=== PATIENT | male | born 1975 | race Caucasian/White ===

== ENCOUNTER → 2017-09-27 11:19 | Outpatient (REF) | payer BC, SELFPAY ==
[2017-09-27 21:29] LABS: Cholesterol 167 mg/dL (50-200); Glucose 99 mg/dL (70-100); HDL Cholesterol 42 mg/dL (40-60); LDL CHOLESTEROL 104 mg/dL (<100); Triglyceride 138 mg/dL (30-150)
== END ==
LOC: NCHCN 11:19
PROVIDERS: PCP Nurse Practitioner; Visit Provider Nurse Practitioner
DX: Z00.00 Encounter for general adult medical examination without abnormal findings (principal); Z13.1 Encounter for screening for diabetes mellitus; Z13.220 Encounter for screening for lipoid disorders
CPT/HCPCS: 80061; 82947; 83721

== ENCOUNTER 2017-10-04 18:54 | Emergency (ER) | payer BC, SELFPAY ==
[2017-10-04 19:05] VITALS: BP 133/87; PULSE 77; RESP 20; TEMP 36.8; O2SAT 97
--- NOTE | 2017-10-04 19:31 | ED.GENADUL_ITS ---
Disposition Clinical Impression: Laceration, eyelid Disposition: HOME Condition: Fair Instructions: Facial Laceration (ED) Additional Instructions: Keep wound clean, dry. Monitor for signs of infection including redness, warmth , drainage, fever/chills, increased pain. If these arise please seek care urgently once again. Sutures are absorbable and will follow out on their own. If you develop eye pain, visual changes other new/worsening symptoms please seek care urgently once again. Please follow-up with primary care next week for reevaluation of wound. Referrals: Argentina Rodriguez [Primary Care Provider] - Medical Decision Making - Medical Decision Making Patient presents today with chief complaint of laceration to the left lower lid. Wound is irregular shaped approximately 6 mm in length. Patient also has swelling and ecchymosis centrally in the lower lid. Extraocular was intact. No visual changes. Conjunctiva is not injected. Exam is otherwise benign. I have asked her secretarial staff to find tetanus status. We will anesthetized the area with topical LET. I did have Dr. Page review the wound to discuss closure techniques. He advised on closure techniques and anesthesia technique. LET was not successful at anesthetizing the affected area. Procedure note: Standard sterile technique a TB syringe was used to infiltrate. 1% lidocaine plain. 0.5 cc were used. Wound was then irrigated with sterile saline. Wound was explored to base in a bloodless field. No foreign body or debris was noted. Attention was then turned to closure. #5 simple interrupted 6-0 Monocryl were placed. Wound aligned well with no tension on the wound. Patient tolerated procedure well. I did iglesia the lower lead was unable to appreciate any disruption in the inner surface. Tetanus was updated today. Patient discussed wound care in depth. We discussed the care of his observable stitches. We discussed the signs symptoms of infection when to seek care urgently once again. Advised that he may wash with running water such as when showering but he should not soak or submerge this will increase his risk of infection. Given its location, I have asked that he follow-up with primary care for wound recheck. We discussed new/worsening symptoms and when to seek care urgently once again. All his questions and concerns were addressed and he is in agreement with this plan. History of Present Illness - General Chief complaint: Laceration Stated complaint: FACIAL LACERATION Time Seen by Provider: 10/04/17 19:28 Source: patient, RN notes reviewed Mode of arrival: ambulatory Limitations: no limitations - History of Present Illness Initial comments: Patient is a 42-year-old male presenting today with chief complaint of left eye laceration. Reports a prior to arrival he was playing a pickup game of hockey when he was struck in the left eye with a stick. He denies any eye pain with movement of the eye. Denies any visual changes. Unknown tetanus status. Laceration is along the lateral inferior aspect of the left eye. Also has ecchymosis under her left eye. Has not noted any tearing. Denies other injury the time the incident. Denies any loss conscious. No headache. No pain in the neck or back. Denies any nausea or vomiting. - Related Data Multivitamin [Multivitamins] 1 each PO DAILY 08/14/17 Naproxen Sodium [Aleve] 440 mg PO PRN PRN 08/14/17 Ranitidine [Zantac] 150 mg PO DAILY 08/14/17 Allergies Allergy/AdvReac Type Severity Reaction Status Date / Time No Known Allergies Allergy Unverified 10/04/17 19:06 Review of Systems Constitutional: no symptoms reported Eyes: as per HPI Respiratory: no symptoms reported Skin: as per HPI Neurological: denies: headache Past Medical History - Past Medical History Medical history: GERD Chronic back pain Surgical history: non-contributory, other (Lower back nerve ablation, Oral surgery) - Social History Alcohol use: occasionally Drug use: none General Exam - General Limitations: no limitations General appearance: alert, in no apparent distress - Head Head exam: Present: atraumatic - Eye Eye exam: Present: PERRL, EOMI, periorbital swelling. Absent: normal apperance (Patient has an irregularly shaped 6 mm laceration to the inferior lateral aspect of the left eyelid. Wound is not actively bleeding. Small amount of soft tissue swelling. Wound is in the subcutaneous tissue. Also noted to have linear aspect of ecchymosis along the lower lid associated soft tissue swelling. Extraocular movements are intact. Pupils are equal round and reactive.), scleral icterus, conjunctival injection, nystagmus, periorbital tenderness Pupils: Present: normal accommodation - Neck Neck exam: Present: normal inspection - Respiratory Respiratory exam: Absent: respiratory distress - Neurological Exam Neurological exam: Present: alert, normal gait - Psychiatric Psychiatric exam: Present: normal affect, normal mood - Skin Skin exam: Absent: intact (As above) Course Vital Signs - 24 hr 10/04/17 19:05 Temperature 36.8 C Pulse 77 Respiratory 20 Rate Blood Pressure 133/87 Pulse Oximetry 97
[2017-10-04 21:06] VITALS: BP 133/87; PULSE 77; RESP 20; TEMP 36.8; O2SAT 97
[2017-10-04] MEDS: Lidocaine 1% Multi-Dose 50 ML VIAL IJ (21:06)
== END 2017-10-04 21:04 | disposition home or self-care (01) ==
PROVIDERS: Emergency Provider Student in an Organized Health Care Education/Training Program; PCP Nurse Practitioner
DX: S01.112A Laceration without foreign body of left eyelid and periocular area, initial encounter (principal); W21.210A Struck by ice hockey stick, initial encounter; Y93.22 Activity, ice hockey
CPT/HCPCS: 12011; 90471; 99281

== ENCOUNTER 2019-12-05 01:37 | Outpatient (CLI) | payer BC, SELFPAY ==
[2019-12-05 11:46] LABS: Ferritin 295 ng/mL (26-388)
== END 2019-12-05 01:57 ==
PROVIDERS: PCP Nurse Practitioner; Visit Provider Nurse Practitioner
DX: M25.50 Pain in unspecified joint (principal)
CPT/HCPCS: 36415; 82728

== ENCOUNTER 2020-02-14 04:18 | Outpatient (CLI) | payer BC, SELFPAY ==
[2020-02-14] MEDS: Simethicone/Sod Bicarb/Cit Ac, 4 gram PACKET 1 PACKET PO (10:07)
[2020-02-14] MEDS: Barium Sulfate 700 MG TAB PO (10:08)
[2020-02-14] MEDS: Barium Sulfate 60% W/V 355 ML BTL PO (10:08)
--- NOTE | 2020-02-14 10:11 | DI.RAD_ITS ---
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 CONTRAST MATERIAL: Oral barium Oral water soluble contrast was administered. COMPARISON: No exams were available for comparison FINDINGS: CHEST X-RAY: The heart and pulmonary vasculature are within normal limits. The lungs are clear. No pl eural effusion or pneumothorax is present. The bones are within normal limits fo the patient's age. ESOPHAGRAM: The esophagus is patent with no evidence for erosions, fold thickening, strictures, or ma sses. With regards to the motility, there is a normal primary stripping wave. No tertiary contraction s were noted. There is no hiatal hernia or gastroesophageal reflux. A barium tablet passed into the s tomach. IMPRESSION: Normal esophogram
== END 2020-02-14 04:38 ==
PROVIDERS: PCP Nurse Practitioner; Visit Provider Physician Assistant
DX: F45.8 Other somatoform disorders (principal)
CPT/HCPCS: 74221; J3490

== ENCOUNTER 2021-12-31 12:12 | Day surgery (SDC) | payer BC, SELFPAY ==
--- NOTE | 2021-12-30 20:52 | W.PM.DSUDISC ---
Date of service: 12/31/21 Time of Service: 13:28 Discharge Plan Disposition Patient Disposition: HOME Condition: Good Discharge Details Reason For Visit: colonoscopy Attending Provider: Lazaro Rouse Primary Care Provider: LUCIANO ISAACS Home Meds and New Rx's Prescriptions: Continued sertraline 50 mg tablet 50 mg PO DAILY omeprazole 20 mg capsule,delayed release(DR/EC) 20 mg PO DAILY vitamin B complex [B Complex-Vitamin B12] Tablet 1 tab PO DAILY naproxen sodium [Aleve] 220 MG tablet 440 mg PO PRN PRN multivitamin 1 EACH capsule 1 ea PO DAILY Discontinued bisacodyl [Dulcolax (bisacodyl)] 5 mg tablet,delayed release (DR/EC) 5 mg PO ONCE Qty: 4 0RF Rx Instructions: Take according to provider's instructions for colonoscopy prep. polyethylene glycol 3350 17 gram/dose powder 17 g PO ONCE Qty: 238 0RF Rx Instructions: To be taken as directed by prescriber's office for colonoscopy prep. Discharge Instructions Additional Instructions: 1. If tolerated, consume a soft, low fiber diet for 1-2 days. [address] Do not drive, drink alcohol, operate machinery, make critical decisions, or do activities that require coordination or balance for 24 hours. 3. Because air was put into your colon during the procedure, expelling air from your rectum (passing gas or farting) is normal. 4. You may not have a bowel movement for 1-3 days because of the colonoscopy prep. This is normal. 5. Go directly to the emergency room if you notice any of the following: Develop chills (warm to touch), or if you have a thermometer and your temperature is above 101 Difficulty breathing or difficultly swallowing Persistent vomiting Severe abdominal pain, other than gas cramps Severe chest pain Black, tarry stools Any bleeding ? exceeding one tablespoon 6. Call your physician if the site where your intravenous was started becomes red, swollen, painful, and warm to touch. 7. Your physician has reviewed your pre-procedure medications. Please continue to take those medications as previously ordered. You will be given specific information/education regarding any changes to your medications before leaving. Activity:: Activity as Tolerated Diet:: As Tolerated Discharge Orders Discharge Orders: Discharge Order (Routine); Ordered 12/30/21 Ordered By: Lazaro Rouse DS: Diagnosis Discharge Diagnosis (1) Screening for colon cancer: Status: Acute Asessment and Plan: Normal colonoscopy. He should follow-up with another one in 10 years
--- NOTE | 2021-12-30 20:53 | W.COLOREPORT ---
Date of service: 12/31/21 Time of Service: 13:29 Colonoscopy Report Date of procedure: 12/31/21 Pre-op diagnosis general: Screening colonoscopy for routine health maintenance Post-op diagnosis procedure note: same Procedure: Screening colonoscopy Surgeon: Lazaro Rouse Anesthesia Type: General:No Airway Estimated blood loss (mL): 0 Pathology: none sent Complications: None Disposition: same day Indications: Amaury is 46 years old and is here for his first screening colonoscopy. Prep: Miralax/Dulcolax Procedure Start Time: 13:07 Procedure End Time: 13:21 Retraction Time: 11 Findings: Normal colonoscopy Procedure Description: After the induction of monitored anesthetic care, and with the patient in left lateral decubitus position, I began by performing an external anorectal exam.? Perineum and skin were normal, as was the anal verge.? There was no not evidence of external hemorrhoids.? Next, I performed a digital rectal exam.? I did appreciate any abnormal findings.? Next, I advanced a colonoscope into the rectal vault.? I performed retroflexion.? I did not see signs of pathologic internal hemorrhoids.? Using insufflation, I then advanced the colonoscope beyond the rectal folds and into the sigmoid colon before advancing towards the cecum.? The quality of the prep was excellent.? The scope was noted to be in the cecum by identification of the ileocecal valve and appendiceal orifice.? I then began withdrawing the colonoscope using repeated irrigation as necessary for full evaluation of the colonic mucosa. ?Once the scope was withdrawn to the level of the rectum, great care was taken to examine portions of the rectal folds.? Finally, the scope was withdrawn and the patient was brought to the same-day surgery recovery unit as the anesthetic wore off. ?The findings and instructions were shared with the patient prior to discharge.
--- OUTSIDE RECORDS SUMMARY | 2021-12-31 12:14 | XMS_ITS | Encounter Summary ---
:1975 Author Organization [facility] [place] [address] Care Team Providers Name Role Phone Enrike Melgoza MD Primary Care Provider Encounter Details Date Type Department Care Team Description 10/25/2017 Hospital Encounter [place] [facility] [place], Chronic right [address] Ursula MD joint pain [facility] [id number] [place] [phone] [place] [address] Social History Tobacco Use Types Packs/Day Years Used Date Never Smoker Smokeless Tobacco: Never Used Alcohol Use Standard Drinks/Week Comments Yes 0 (1 standard drink = 0.6 oz pure Not a M-F drinker; just socially. alcohol) Alcohol Habits Answer Date Recorded How often do you have a drink Not asked containing alcohol? How many drinks containing alcohol do Not asked you have on a typical day when you are drinking? How often do you have six or more Not asked drinks on one occasion? Comment: Not a M-F drinker; just socially. 2013 Sex Assigned at Date Recorded Not on file documented as of this encounter Medications at Time of Discharge Medication Sig Dispensed Refills Start Date End Date ibuprofen (ADVIL;MOTRIN) Take 200 mg by 0 200 mg tablet mouth every 6 hours as needed. ranitidine (ZANTAC) 75 mg Take 75 mg by 0 tablet mouth 2 times daily. multivitamin (THERAGRAN) Take 1 tablet by 0 tablet mouth daily. b complex vitamins (VITAMIN Take 1 tablet by 0 B COMPLEX) tablet mouth daily. cyclobenzaprine (FLEXERIL) Take 1 tablet by 30 tablet 0 02/201312/01/2017 5 mg tabletIndications: mouth 3 times Strain of lumbar paraspinal daily as needed muscle, initial encounter for Muscle spasms. documented as of this encounter Plan of Treatment Not on filedocumented as of this encounter Procedures Procedure Name Priority Date/Time Associated Comments Diagnosis HEMOGRAM Routine 10/25/2017 9:04 PM Results f or this EDT procedure are i n the results section. DIFFERENTIAL, Routine 10/25/2017 9:04 PM Results for this AUTOMATED EDT procedure are i n the results section. XR SACROILIAC JOINTS Routine 10/25/2017 11:29 AM Chronic right SI Results for this (GENERIC) EDT joint pain procedure are i n the results section. documented in this encounter Results Differential, Automated (10/25/2017 9:04 PM EDT) P athologist Signature Neutrophils % 50.8 % [facility] Neutr Abs (ANC) 3.08 1.70 - [facility] 6.10 [facility] x10(3)/[facility] LAB[facility]AT[facility] Lymphocytes % 33.3 % [facility] Lymphocytes Abs 2.0 0.9 - 3.2 [facility] x10(3)/[facility] LABORATORY Monocytes % 8.4 % [facility] Monocyte Abs 0.5 0.3 - 0.9 [facility] x10(3)/[facility] LABORATORY Eosinophils % 6.1 % [facility] Eosinophils Abs 0.4 0.0 - 0.4 [facility] x10(3)/[facility] LABORATORY Basophils % 1.2 % [facility] Basophils Abs 0.1 0.0 - 0.1 [facility] x10(3)/[facility] LABORATORY Immature Gran % 0.20 % [facility] Comment: Immature granulocytes(IG's)percentage an d absolute count will include metamyelocytes, myelocytes, and promyelo cytes. Blood smears from CBCs yielding IG's will be scanned manually for concor dance. If this scan disagrees with the automated IG or if promyelocytes are not ed, a manual differential will be performed. Tanya Gran Abs 0.01 0.00 - 0.04 x10(3)/[facility] Specimen Anatomical Collection Method Collection Time Receive d Time (Source) Location / / Volume Laterality Blood specimen Venous Draw / 10/25/2017 9:04 PM 2017 9:04 (specimen) Unknown EDT PM EDT Resulting Agency Comment Spec In Lab Ursula Haile MD HEMATOLOGY ORDERABLES Performing Organization Address City/State/ZIP [place] [address] (ABNORMAL) Hemogram (10/25/2017 9:04 PM EDT) athologist Signature WBC 6.1 4.0 - 9.5 [facility] x10(3)/[facility] RBC 5.01 4.58 - 5.54 [facility] x10(6)/[facility] Hemoglobin 15.6 13.7 - 16.5 [facility] gm/dL [facility] Hematocrit 42.5 40.5 - 48.5 [facility] MCV 84.8 82.9 - 93.1 [facility] LABORATORY Comment: This result has been called to NOT BOGGS D by Ana Cabral on 10 25 2017 at 2113, and has not been read back . MCH 31.1 27.5 - 32.1 pg [facility] MCHC 36.7 (H) 32.0 - 35.7 gm/dL [facility] Platelets 264 145 - 357 x10(3)/[facility] LABORATORY RDWSD 36.9 36.0 - 45.0 [facility] LABORATORY RDWCV 12.1 11.4 - 13.8 % [facility] MPV 10.1 7.6 - 12.9 [facility] LABORATORY nRBC % Auto 0.0 % [facility] nRBC Abs Auto 0.000 0.000 - 0.000 x10(3)/[facility] Specimen Anatomical Collection Method Collection Time Receive d Time (Source) Location / / Volume Laterality Blood specimen Venous Draw / 10/25/2017 9:04 PM 2017 9:04 (specimen) Unknown EDT PM EDT Resulting Agency Comment Spec In Lab Ursula Haile MD HEMATOLOGY ORDERABLES Performing Organization Address City/State/ZIP Code Phon e Number [place] [id number] XR S-I Joints (Generic) (10/25/2017 11:29 AM EDT) Anatomical Region Laterality Modality Pelvis, Hip N/A Digital Radiography Specimen (Source) Anatomical Location Collection Method / Collectio n Time Received Time / Laterality Volume Narrative 10/25/2017 11:50 AM EDT EXAMINATION: XR S-I JOINTS (GENERIC) CLINICAL HISTORY: R SI joint pain. B/L f or comparison. thanks TECHNIQUE: 3 views COMPARISON: None FINDINGS: Bones: No fracture is present. Lumbosacral transitional anatomy with a suspected ileus left L5 transverse process articulating with the left sacra l 8. There are large osteophytes and subchondral sclerosis at this articulati on. This finding may contribute to pain. SI Joints: No ankylosis or erosions. The joint spaces are relatively symmetric. Vacuum phenomenon is present at the righ t SI joint. Hip joints: Symmetric joint spaces. Soft tissue: Normal. Impression 1. ??No sacroiliitis, ankylosis or erosi ons. 2. ??Lumbosacral transitional anatomy wi th degenerative changes at the left transverse process-sacral articulation m ay contribute to pain. Procedure Note Enriqueta Goncalves MD - 10/25/2017Formatt ing of this note might be different from the original. EXAMINATION: XR S-I JOINTS (GENERIC) CLINICAL HISTORY: R SI joint pain. B/L f or comparison. thanks TECHNIQUE: 3 views COMPARISON: None FINDINGS: Bones: No fracture is present. Lumbosacral transitional anatomy with a suspected ileus left L5 transverse process articulating with the left sacra l 8. There are large osteophytes and subchondral sclerosis at this articulati on. This finding may contribute to pain. SI Joints: No ankylosis or erosions. The joint spaces are relatively symmetric. Vacuum phenomenon is present at the righ t SI joint. Hip joints: Symmetric joint spaces. Soft tissue: Normal. Impression 1. No sacroiliitis, ankylosis or erosion s. 2. Lumbosacral transitional anatomy with degenerative changes at the left transverse process-sacral articulation m ay contribute to pain. Ursula Haile MD IMG DX ORDERABLES documented in this encounter Visit Diagnoses Diagnosis Chronic right SI joint pain Disorders of sacrum documented in this encounter Care Teams Hot Press Operator Relationship Specialty Start Date End Date Enrike Melgoza MD PCP - General 01/27/14 11/01/[address] [place] [id number] documented as of this encounter
--- OUTSIDE RECORDS SUMMARY | 2021-12-31 12:14 | XMS_ITS | Encounter Summary ---
:1975 Author Organization [facility] [place] [address] Care Team Providers Name Role Phone Argentina Rodriguez APRN Primary Care Provider Reason for Visit Consultation (Routine) - Specialty Diagnoses / Procedures Referred By Contact Refer red To Contact Rheumatology Diagnoses RAPHAEL positive Facial numbness + RAPHAEL, RIGHT FACIAL NUMBNESS Lili Miles MD [facility] Rheumatology 5c [facility] [address] [address] [place], [place] [address] Referral ID Status Reason Start Date Expiration Date Visits V isits Requested Authorized [id number] Consult, Test 08/29/2017 03/01/2018 [facility] PCP Updated and/or Approved Encounter Details Date Type Department Care Team Description 12/01/2017 Office Visit Rheumatology at [facility] Ursula Haile, Right facial numbness; [facility] Chronic low back pain without sciatica, unspecified back [place] [address] [phone] Rheumatology [place], [place] [address] Social History Tobacco Use Types Packs/Day Years [...] on file documented as of this encounter Last Filed Vital Signs Vital Sign Reading Time Taken Comments Blood Pressure 123/71 12/01/2017 8:43 AM EDT Pulse 67 12/01/2017 8:43 AM EDT Temperature 37.2 ??C (98.9 ??F) 12/01/2017 8:43 AM EDT Respiratory Rate - - Oxygen Saturation 97% 12/01/2017 8:43 AM EDT Inhaled Oxygen Concentration - - Weight 94.8 kg (209 lb) 12/01/2017 8:43 AM EDT Height 177.2 cm (5' 9.75) 12/01/2017 8:43 AM EDT Body Mass Index 30.2 12/01/2017 8:43 AM EDT documented in this encounter Progress Notes Ursula Haile MD - 12/01/2017 9:00 AM EDT Rheumatology follow-up note Initially evaluated in September given positive RAPHAEL, facial numbness. Continues to have numbness in the same R facial distribution. No new or worsening symptoms. Says that he got used to the right facial numbness Had f/u with Neurology. Continue to monitor. Reviewed blood work, imaging. Patient has R SI joint pain. Other than participating in sports hockey, golf, soft ball for 5-6 years, when young, played foot ball. No trauma, injury S/P RFA in in 11/2013 helped with back pain. Thinking about having second one. Back pain always present not debilitating as in 2013. Physical exam: Gen: Patient is awake, alert and oriented x 3, in no distress Skin: warm and dry, no rheumatologic rashes Lymph: no cervical or submandibular adenopathy Mouth: moist mucous membranes, no oral ulcers Eyes: normal sclerae Heart: regular rate, no murmurs, rubs or gallops Lungs: clear to auscultation b/l Spine: R SI joint tenderness. Musculoskeletal: unchanged. No active synovitis. FROM in all joints. LABS: 10/25/17 ALT 54 (0-55) RAPHAEL,NASEEM,dsDNA, ANCA, ESR, CRP, hepatitis serologies, SPEP, CBC,CMP WNL/negative. MPO, PR3 pending. Xray SI joint: 1. ??No sacroiliitis, ankylosis or erosions. 2. ??Lumbosacral transitional anatomy with degenerative changes at the left transverse process-sacral articulation may contribute to pain. Assessment/Plan: Amaury is 42 yo M referred by Neurology for evaluation of right facialnumbness in the setting of positive RAPHAEL, 1:160 SP. Per Neurology, numbness in Right V2 distribution and felt to be post viral nerve injury. No other neurological deficits. H/O dental procedures (last root canal about a year ago. ?? Low back pain, mechanical in nature. S/P RFA in 12/2013 at Lumbosacral arthritis noted on imaging. F/U Chiropractor every month and it helps. No evidence of psoriasis, inflammatory bowel disease, eye, problems. No evidence of inflammatory arthritis. ROS otherwise negative for connective tissue disease. No evidence of sacroiliitis. Differential, inflammatory vs vasculitis vs post viral. No preceeding acute illness though. Repeat Serologies, inflammatory markers negative/WNL. RAPHAEL, NAESEM, dsDNA, C3, C4, ESR, CRP, CBC, CMP, ANCA, hepatitis B,C serologies, SPEP Mild abnormal LFT's ? Steatohepatitis. BMI 31. Repeat normal. Advised on RUQ US for evaluation of fatty infiltration of liver. No clear cause identified for right-sided facial numbness. Reportedly per follow-up with neurology, continue to monitor and reassess with new or worsening symptoms. Again informed about the presenting features of connective tissue disease such as SLE, associated neurological involvement. RTC as needed. documented in this encounter Plan of Treatment Not on filedocumented as of this encounter Visit Diagnoses Diagnosis Right facial numbness Disturbance of skin sensation Chronic low back pain without sciatica, unspecified back pain laterality documented in this encounter Care Teams Hospice Volunteer Coordinator Relationship Specialty Start Date End Date Argentina Rodriguez APRN PCP - General Family Medicine 11/02/17 Olegario [facility] [place] [address] documented as of this encounter
--- OUTSIDE RECORDS SUMMARY | 2021-12-31 12:15 | XMS_ITS | Encounter Summary ---
:1975 Author Organization [facility] [place] [address] Care Team Providers Name Role Phone Enrike Melgoza MD Primary Care Provider Reason for Referral Surgical (Routine) - Closed Specialty Diagnoses / Procedures Referred By Contact Refer red To Contact Orthopaedic Surgery / Diagnoses Chronic right sacroiliac joint pain [facility] [address] [place] GENERAL INTERNAL [phone] [place] [address] Referral ID Status Reason Start Date Expiration Date Visits V isits Requested Authorized [id number] Closed Consult, 08/22/2013 02/18/2014 1 1 Test & Treat Encounter Details Date Type Department Care Team Description 08/22/2013 Orders Only Internal Medicine at [facility], Chronic right [address] sacroiliac joint pain [address] [facility] (Primary Dx) [place] [address] GENERAL INTERNAL [phone] [address] [place], [place] [address] (Wo rk) Social History Tobacco Use Types Packs/Day Years [...] on file documented as of this encounter Progress Notes Desiree Funes - 08/22/2013 3:07 PM EDT I have just checked on this referral and the Spine center has this in process. documented in this encounter Plan of Treatment Scheduled Referrals Name Type Priority Associated Diagnoses Order S chedule Referral to Spine Outpatient Referral Routine Chronic right Or dered: Center sacroiliac joint 08/22/2013 pain documented as of this encounter Visit Diagnoses Diagnosis Chronic right sacroiliac joint pain - Pr imary Disorders of sacrum documented in this encounter Care Teams Senior Patrol Agent Relationship Specialty Start Date End Date Enrike Melgoza MD PCP - General 03/05/12 12/23/[address] [place] [id number] documented as of this encounter
--- OUTSIDE RECORDS SUMMARY | 2021-12-31 12:15 | XMS_ITS | Encounter Summary ---
:1975 Author Organization [facility] [place] [address] Care Team Providers Name Role Phone Enrike Melgoza MD Primary Care Provider Reason for Referral Physical Therapy (Routine) - Closed Specialty Diagnoses / Procedures Referred By Contact Refer red To Contact Physical Therapy Diagnoses Strain of lumbar paraspinal muscle, initial encounter Lonnie Rodriguez PA [facility] Pt Rehab [facility] [place] [address] [place] [address] Referral ID Status Reason Start Date Expiration Date Visits V isits Requested Authorized [id number] Closed Evaluate and 06/27/2013 12/24/2013 1 1 Treat Reason for Visit Reason Comments Back Pain right side back pain x sever al years, getting worse with exercise; concerned fatty lump; chirop ractor helped some; OTC meds not helping Encounter Details Date Type Department Care Team Description 06/27/2013 Office Visit Internal Medicine at Lon[facility] Rodriguez [facility] [place] paraspinal muscle, [address] [facility] initial encounter [place], [place] (Primary Dx) [phone] [facility] [phone] PRIMARY CARE [place], [place] [address] Social History Tobacco Use Types Packs/Day Years Used Date Never Smoker Smokeless Tobacco: Never Used Alcohol Use Standard Drinks/Week Comments Yes 5 (1 standard drink = 0.6 oz pure alcoho l) Sex Assigned at Date Recorded Not on file documented as of this encounter Last Filed Vital Signs Vital Sign Reading Time Taken Comments Blood Pressure 127/92 06/27/2013 9:33 AM EDT left arm Pulse 79 06/27/2013 9:33 AM EDT Temperature 37 ??C (98.6 ??F) 06/27/2013 9:33 AM EDT Respiratory Rate 12 06/27/2013 9:33 AM EDT Oxygen Saturation 98% 06/27/2013 9:33 AM EDT Inhaled Oxygen Concentration - - Weight 92.4 kg (203 lb 12.8 oz) 06/27/2013 9:33 AM EDT Height 175.3 cm (5' 9) 06/27/2013 9:33 AM EDT Body Mass Index 30.1 06/27/2013 9:33 AM EDT documented in this encounter Progress Notes Lonnie Rodriguez PA - 06/27/2013 9:31 AM EDT Subjective: Patient ID: Amaury Armendariz is a 38 y.o. male. HPI Amaury Armendariz presents for evaluation of back pain. He has a hx of back pain for a few years whichworsened last fall when playing hockey. It is in the R lower back. He describes it as a twisting sensation. He was seen by a chiropractor with mild benefit. He has noticed a cyst in the region. It is worse with physical activities. Some radiation to the hip. No numbness or weakness in legs. He will take aleve or motrin intermittently. He has tried ice/heat with variable results. Review of Systems Constitutional: Negative for fever and unexpected weight change. Gastrointestinal: Negative for abdominal pain. Genitourinary: No incontinence Objective: Physical Exam Vitals reviewed. Constitutional: He appears well-developed and well-nourished. No distress. Abdominal: Soft. Bowel sounds are normal. He exhibits no distension and no mass. There is no tenderness. Musculoskeletal: Lumbar back: He exhibits normal range of motion, no tenderness and no bony tenderness. Neg leg raise Assessment and Plan: Amaury was seen today for back pain. Diagnoses and associated orders for this visit: Strain of lumbar paraspinal muscle, initial encounter - Referral to Physical Therapy - cyclobenzaprine (FLEXERIL) 5 mg tablet; Take 1 tablet by mouth 3 times daily as needed for Muscle spasms. It sounds like he has a muscle bundle that reacts to his activity. He will be referred for PT and can use flexeril prn. He can also use a heat pad. documented in this encounter Plan of Treatment Not on filedocumented as of this encounter Procedures Procedure Name Priority Date/Time Associated Diagnosis Comme nts AMB REFERRAL TO PHYSICAL Routine 07/10/2013 Strain of lumbar paraspinal THERAPY muscle, initial encounter documented in this encounter Results Referral to Physical Therapy (07/10/2013) Enrike Melgoza MD [facility] THERAPY REFERRALS documented in this encounter Visit Diagnoses Diagnosis Strain of lumbar paraspinal muscle, init ial encounter - Primary documented in this encounter Care Teams Business Development Coordinator Relationship Specialty Start Date End Date Enrike Melgoza MD PCP - General 03/05/12 12/23/[address] [place] [id number] documented as of this encounter
--- OUTSIDE RECORDS SUMMARY | 2021-12-31 12:15 | XMS_ITS | Encounter Summary ---
:1975 Author Organization [facility] [place] [address] Care Team Providers Name Role Phone Enrike Melgoza MD Primary Care Provider Reason for Visit Reason Comments Back Pain Encounter Details Date Type Department Care Team Description 09/04/2013 Office Visit [facility] at Gal[facility]ino Lawson , PT [facility] [place] [address] Mechanical low back [place] Qiana Moran, YOAV [facility] [place] [address] pain-right sided [facility] MD [facility] [address] (Primary Dx) [place] [address] Social History Tobacco Use Types Packs/Day Years [...] documented as of this encounter Progress Notes Galdino Lawson, PT - 09/04/2013 2:54 PM EDT [facility] PHYSICAL THERAPY INITIAL VISIT Onset: Aggravated September 2012, related to no known injury. Pain: Located in the low back, right buttock, intensity 5/10 at worst. Associated symptoms: Denies sensory loss or weakness in LEs. Previous episodes: 25 year history, no spine surgeries, no known fractures. Treatments this episode: See referral note. Imaging: X-ray done at chiropractor, reportedly showing no fracture or malalignment. Medical history: See problem list. Usual activities are restricted due to this problem. Limiting yardwork. Still able to golf and bike as desired. Sleep is not disturbed. 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 Current exercise routine: Home routine from past PT x 3 days per week, session takes about 30 minutes total, reports that rotation strategies knees left and some flexion strategies can aggravate. Bikes3 miles x 2 days per week, denies aggravation of symptoms during or as a result. Plays golf, walks course, x 2 days per week. Worse with: Sitting, bending, standing. Better with: walking. Gait: Subtle bilateral lateral listing. Neural tension screening: Seated straight leg raises negative. LE Strength Right Left Hip flexion 5/5 5/5 Knee extension 5/5 5/5 Dorsiflexion 5/5 5/5 Hallux extension 5/5 5/5 Plantarflexion 4/5 4/5 Observation / palpation (standing): Right iliac crest mildly elevated compared to left, subtle left lateral shift appearance in lumbar spine. Lumbar spine AROM degrees Forward bend standing 80 Backward bend standing 15 (deviates into left rotation) (Right less than Left Side [place]) Repeated movement testing During, After Pre-test pain standing Low back Flexion standing increased, worse Extension standing increased, worse Pre-test pain lying Low back Flexion lying decreased, better Extension lying increased, worse Additional tests (lateral, overpressure, passive): Flexion sitting with no adverse effects. Assessment: Flexion directional preference, symptoms will likely change slowly over time. Will likely require lateral or strength components to compliment. Active participation in self care planning today. Plan: Initial self care trial centered around flexion lying x 10 repetitions and flexion sitting x 10 repetitions, agreed that he will perform one or the other every couple of hours while awake for 6 sessions total each day. Knows to discontinue any movement or activity that causes true worsening or peripher alization of symptoms. Other considerations will include rotation in flexion, flexion in step standing. Recommend PT follow up in 1 week. Treatment Goals (with 2 additional PT sessions over 3 weeks): Pain intensity 2/10 at worst. Allow for sitting 30 minutes without pain aggravation. Increase flexion and extension range of motion 10 degrees each. Independent self care. documented in this encounter Plan of Treatment Not on filedocumented as of this encounter Visit Diagnoses Diagnosis Mechanical low back pain-right sided - P rimary Lumbago documented in this encounter Care Teams Machine Hose Cutter Relationship Specialty Start Date End Date Enrike Melgoza MD PCP - General 03/05/12 12/23/[address] [place] [id number] documented as of this encounter
--- OUTSIDE RECORDS SUMMARY | 2021-12-31 12:15 | XMS_ITS | Encounter Summary ---
:1975 Author Organization [facility] [place] [address] Care Team Providers Name Role Phone Enrike Melgoza MD Primary Care Provider Reason for Visit Consultation (Routine) - Specialty Diagnoses / Procedures Referred By Contact Refer red To Contact Rheumatology Diagnoses RAPHAEL positive Facial numbness + RAPHAEL, RIGHT FACIAL NUMBNESS Lili Miles MD [facility] 5c [facility] [address] [id number] [place], [place] [address] Referral ID Status Reason Start Date Expiration Date Visits V isits Requested Authorized [id number] Consult, Test 08/29/2017 03/01/2018 [facility] PCP Updated and/or Approved Encounter Details Date Type Department Care Team Description 10/25/2017 Office Visit [place] [facility] [place]ula Haile, Raised antibody titer; [facility] Rt facial numbness; [facility] right SI joint pain; [place] [address] Abnormal laboratory test [phone] Rheumatology Dep [place], [place] [address] Social History Tobacco Use Types [...] Sign Reading Time Taken Comments Blood Pressure 135/73 10/25/2017 9:46 AM EDT Pulse 66 10/25/2017 9:46 AM EDT Temperature 37.2 ??C (98.9 ??F) 10/25/2017 9:46 AM EDT Respiratory Rate - - Oxygen Saturation 97% 10/25/2017 9:46 AM EDT Inhaled Oxygen Concentration - - Weight 97.5 kg (215 lb) 10/25/2017 9:46 AM EDT Height 177.2 cm (5' 9.75) 10/25/2017 9:46 AM EDT Body Mass Index 31.07 10/25/2017 9:46 AM EDT documented in this encounter Progress Notes Ursula Haile MD - 10/25/2017 10:00 AM EDT Outpatient Rheumatology Consult CC: Asked by Lili Miles MD, Neurology, [place], [place] to evaluate this patient with positive RAPHAEL. Facial numbness. No paper work up filled. Reviewed notes. HPI: Amaury is 42 yo M with h/o mechanical low back pain. 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 Since July (2 months), sort of sudden onset, numbness on R side of face (nose, cheek, chin). Noticeswhen shaving. No change int he nature of pain. Has seen dentist 6 months ago for hygiene. Had root canal done about a year ago. Not worse not better. Not taking any specific medications for relief. No acute illness, travel, injury preceding the onset of symptoms.. Known h/o sun burn over years. Has photosensitivity. No malar rash, mouth sores, hair loss, dry eyes, dry mouth, serositis. R sided LBP for at least 10 years, worse over the last 5 years. Worse with ice skating, hockey. Now plays goley and is tolerable. Used to play soft ball for 15 years, golf for about 8 years, mountain bike. 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 Seen by chiropractor with some relief. Did PT with some relief. Had RFA lumbosacral spine on January 15 2014. No significant stiffness in the morning. Rest, ice helps with the pain. Sometimes playing goley helps. PMH: Mechanical ow back pain Esophageal reflux related to food intake controlled with Zantac Right-sided low back pain Mild scoliosis Social Hx: Never smoker. Occasional beer. 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 Family Hx: No known family history of autoimmune disease. No known family or personal history of psoriasis, inflammatory bowel disease, eye problems. ROS: Gen: no night sweats, fatigue or fevers Skin: no rashes, no hair loss Mouth: denies dry mouth, no oral ulcers Eyes: no erythema or pain Lymph: no adenopathy Vascular: no Raynaud's, no digital ischemia Heart: no chest pain, palpitations Lungs: no dyspnea, cough, wheezing Abd: no pain, GERD, diarrhea, constipation : no dysuria, no flank pain Musculoskeletal: per HPI Physical Exam: Gen: Patient is awake, alert and oriented x 3, in no distress Skin: warm and dry, no rheumatologic rashes Lymph: no cervical or submandibular adenopathy Thyroid: no nodules or thyromegaly Mouth: moist mucous membranes, no oral ulcers Eyes: normal sclerae Heart: regular rate, no murmurs, rubs or gallops Lungs: clear to auscultation b/l Spine: normal ROM. Mild scoliosis. Joints: No active synovitis. FROM in all joints R SI joint minimal tenderness to palption. Otherwise non tender. Felipe's test 15.5 cm with forward flexion. S/P injury to L eye with hockey stick, corner with 5 stitches, one stitch with minimal redness. Decreased sensation in the R side of face. LABS/Studies: 08/17/17 Tick and lyme panel, vitamin B12, CBC negative/WNL AST/ALT 38/85 (15-37/12-78 U/L) albumin 4.2 vitamin B12 805 TSH 3.62 creatinine 1.6 ESR 7 CRP 0.22 (0-0.3) 08/15/17CT head without contrast negative 08/24/17Brain MRI no acute findings 12/21/13 Xray L spine Impression Mild levoconvex scoliosis of the lumbar spine, otherwise normal lumbar sacral spine films. Impression/Recommendations: Amaury is 42 yo M referred by Neurology for evaluation of right facial numbness in the setting of positive RAPHAEL, 1:160 SP. Per Neurology, numbness in Right V2 distribution and felt to be post viral nerve injury. No other neurological deficits. H/O dental procedures (last root canal about a year ago. Based on history, low back pain, possible mechanical in nature. No evidence of psoriasis, inflammatory bowel disease, eye, problems. No evidence of inflammatory arthritis. ROS otherwise negative for connective tissue disease. Differential, inflammatory vs vasculitis vs post viral Check RAPHAEL, NASEEM, dsDNA ESR, CRP, CBC, CMP Mild abnormal LFT's ? Steatohepatitis. BMI 31 Consider C3, C4, hepatitis B,C serologies, ANCA panel, SPEP as part of vasculitis w/u. Cryo can be done during follow up as appropriate. GGT, RUQ ultrasound based on repeat LFT's RTC in 4 weeks 10/25/17 ALT 54 (0-55) RAPHAEL,NASEEM,dsDNA, ANCA, ESR, CRP, hepatitis serologies, SPEP, CBC,CMP WNL/negative. MPO, PR3 pending. Xray SI joint: 1. No sacroiliitis, ankylosis or erosions. 2. Lumbosacral transitional anatomy with degenerative changes at the left transverse process-sacral articulation may contribute to pain. documented in this encounter Plan of Treatment Not on filedocumented as of this encounter Procedures Procedure Name Priority Date/Time Associated Comments Diagnosis CRP, ACUTE INFLAMMATION Routine 10/25/2017 11:48 Raised antibo dy Results for this AM EDT titer procedure are in Rt facial numbness the resul ts section. EXTRACTABLE NUCLEAR Routine 10/25/2017 11:48 Raised antibody R esults for this ANTIGEN (NASEEM) AB AM EDT titer procedure are in Rt facial numbness the resul ts section. CYTOPLASMIC NEUTROPHILIC Routine 10/25/2017 11:48 Results for this AB AM EDT procedure are i n the results section. PROTEINASE-3 ANTIBODY Routine 10/25/2017 11:48 Re sults for this AM EDT procedure are i n the results section. PROTEINASE-3 ANTIBODY Routine 10/25/2017 11:48 Re sults for this AM EDT procedure are i n the results section. MYELOPEROXIDASE AB Routine 10/25/2017 11:48 Resul ts for this AM EDT procedure are i n the results section. MYELOPEROXIDASE AB Routine 10/25/2017 11:48 Resul ts for this AM EDT procedure are i n the results section. DNA ANTIBODY Routine 10/25/2017 11:48 Raised antibody Results for this (DOUBLE-STRANDED) AM EDT titer procedure are in Rt facial numbness the resul ts section. HEMOGRAM Routine 10/25/2017 11:48 Results for this AM EDT procedure are i n the results section. DIFFERENTIAL, AUTOMATED Routine 10/25/2017 11:48 Results for this AM EDT procedure are i n the results section. HEPATITIS C ANTIBODY Routine 10/25/2017 11:48 Res ults for this AM EDT procedure are i n the results section. HEPATITIS B CORE Routine 10/25/2017 11:48 Results for this ANTIBODY, TOTAL AM EDT procedure ar e in the results section. HEPATITIS B SURFACE Routine 10/25/2017 11:48 Resu lts for this ANTIBODY AM EDT procedure are i n the results section. HEPATITIS B SURFACE Routine 10/25/2017 11:48 Resu lts for this ANTIGEN AM EDT procedure are i n the results section. SEDIMENTATION RATE Routine 10/25/2017 11:48 Raised antibody Re sults for this AM EDT titer procedure are in Rt facial numbness the resul ts section. C3 COMPLEMENT Routine 10/25/2017 11:48 Results fo r this AM EDT procedure are i n the results section. C4 COMPLEMENT Routine 10/25/2017 11:48 Results fo r this AM EDT procedure are i n the results section. RAPHAEL ANTIBODY SCREEN Routine 10/25/2017 11:48 Raised antibody R esults for this AM EDT titer procedure are i n the results section. PROTEIN ELECTROPHORESIS, Routine 10/25/2017 11:48 Results for this SERUM AM EDT procedure are i n the results section. COMPREHENSIVE METABOLIC Routine 10/25/2017 11:48 Results for this PANEL (NON-FASTING) AM EDT procedur e are in the results section. documented in this encounter Results Differential, Automated (10/25/2017 11:48 AM EDT) Patholo gist Method Time Signature Neutrophils % Mislabeled [facility] Comment: Corrected from 40.5 % [NA] on 0 10/25/17 09:01 by Ana Pedro. Neutr Abs (ANC) Mislabeled 1.70 - 6.10 [facility] Comment: Corrected from 1.46 x10(3)/mcL [LOW] on 10/25/17 09:01 by Ana Pedro. Lymphocytes % Mislabeled [facility] Comment: Corrected from 38.5 % [NA] on 0 10/25/17 09:01 by Ana Pedro. Lymphocytes Abs Mislabeled 0.9 - 3.2 [facility] Comment: Corrected from 1.4 x10(3)/mcL o n 10/25/17 09:01 by Ana Pedro. Monocytes % Mislabeled [facility] Comment: Corrected from 12.7 % [NA] on 0 10/25/17 09:01 by Ana Pedro. Monocyte Abs Mislabeled 0.3 - 0.9 [facility] Comment: Corrected from 0.5 x10(3)/mcL o n 10/25/17 09:01 by Ana Pedro. Eosinophils % Mislabeled [facility] Comment: Corrected from 6.6 % [NA] on 09:01 by Ana Pedro. Eosinophils Abs Mislabeled 0.0 - 0.4 [facility] Comment: Corrected from 0.2 x10(3)/mcL o n 10/25/17 09:01 by Ana Pedro. Basophils % Mislabeled [facility] Comment: Corrected from 1.4 % [NA] on 09:01 by Ana Pedro. Basophils Abs Mislabeled 0.0 - 0.1 [facility] Comment: Corrected from 0.0 x10(3)/mcL o n 10/25/17 09:01 by Ana Pedro. Immature Gran % Mislabeled [facility] Comment: Immature granulocytes(IG's)percentage an d absolute count will include metamyelocytes, myelocytes, and promyelo cytes. Blood smears from CBCs yielding IG's will be scanned manually for concor dance. If this scan disagrees with the automated IG or if promyelocytes are not ed, a manual differential will be performed. Immature granulocytes(IG's)percentage an d absolute count will include metamyelocytes, myelocytes, and promyelo cytes. Blood smears from CBCs yielding IG's will be scanned manually for concor dance. If this scan disagrees with the automated IG or if promyelocytes are not ed, a manual differential will be performed. Corrected from 0.30 % [NA] on 10/25/17 0 9:01 by Ana Pedro. Tanya Gran Abs Mislabeled 0.00 - 0.04 [facility] Comment: Corrected from 0.01 x10(3)/mcL on 10/25/17 09:01 by Ana Pedro. Specimen Anatomical Collection Method Collection Time Receive d Time (Source) Location / / Volume Laterality Blood specimen Venous Draw / 10/25/2017 11:48 10/26/19 18 (specimen) Unknown AM EDT 12:07 PM EDT Resulting Agency Comment Spec In Lab Ursula Haile MD HEMATOLOGY ORDERABLES Performing Organization Address City/State/ZIP Code Phon e Number [place] [phone] Hemogram (10/25/2017 11:48 AM EDT) athologist Signature WBC Mislabeled 4.0 - 9.5 [facility] Comment: Corrected from 3.6 x10(3)/mcL [ LOW] on 10/25/17 09:01 by Ana Pedro. RBC Mislabeled 4.58 - 5.54 [facility] Comment: Corrected from 4.47 x10(6)/mcL [LOW] on 10/25/17 09:01 by Ana Pedro. Hemoglobin Mislabeled 13.7 - 16.5 [facility] Comment: Corrected from 13.7 gm/dL on 09:01 by Ana Pedro. Hematocrit Mislabeled 40.5 - 48.5 [facility] Comment: Corrected from 41.5 % on 09:01 by Ana Pedro. MCV Mislabeled 82.9 - 93.1 [facility] Comment: Corrected from 92.8 fL on 10/25 09:01 by Ana Pedro. MCH Mislabeled QNS [facility] Comment: Corrected from 30.6 pg on 10/25 09:01 by Ana Pedro. MCHC Mislabeled 32.0 - 35.7 [facility] Comment: Corrected from 33.0 gm/dL on 09:01 by Ana Pedro. Platelets Mislabeled 145 - 357 [facility] Comment: Corrected from 187 x10(3)/mcL o n 10/25/17 09:01 by Ana Pedro. RDWSD Mislabeled 36.0 - 45.0 [facility] Comment: Corrected from 41.2 fL on 10/25 09:01 by Ana Pedro. RDWCV Mislabeled 11.4 - 13.8 [facility] Comment: Corrected from 11.9 % on 09:01 by Ana Pedro. MPV Mislabeled 7.6 - 12.9 fL [facility] Comment: Corrected from 10.5 fL on 10/25 09:01 by Ana Pedro. nRBC % Auto 0.0 % [facility] nRBC Abs Auto Mislabeled 0.000 - 0.000 [facility] Comment: Corrected from 0.000 x10(3)/mcL on 10/25/17 09:01 by Ana Pedro. Specimen Anatomical Collection Method Collection Time Receive d Time (Source) Location / / Volume Laterality Blood specimen Venous Draw / 10/25/2017 11:48 10/26/19 (specimen) Unknown AM EDT 12:07 PM EDT Resulting Agency Comment Spec In Lab Ursula Haile MD HEMATOLOGY ORDERABLES Performing Organization Address City/State/[place] [address] Comprehensive metabolic panel (non-fasting) (10/25/2017 11:48 AM EDT) P athologist Signature Glucose Lvl 95 65 - 199 [facility] mg/dL [facility] Comment: Diabetes: >=200 mg/dL plus symp toms BUN 18 10 - 20 mg/dL [facility] Creatinine 1.09 0.80 - 1.50 mg/dL [facility] Sodium 140 135 - 145 mmol/L [facility] Potassium 4.2 3.5 - 5.0 mmol/L [facility] Comment: Please note: ??Patients with WBC >100,00 0 may have falsely elevated Potassium levels. ??For accurate Potassium quantif ication in these patients send serum separator tube (gold top) for subsequent determinations. ??Contact the Clinical Chemistry Laboratory if there are any qu estions. Chloride 103 98 - 107 mmol/L [facility] CO2 Not Perf 22 - 31 [facility] Comment: Add-on request. Sample too old to perform test. Anion Gap Unable to Calculate 5 - 15 mmol/L [facility] Calcium 9.8 8.5 - 10.5 mg/dL [facility] Total Protein 7.4 6.1 - 8.0 gm/dL [facility] Albumin 4.5 3.2 - 5.2 gm/dL [facility] AST 29 0 - 39 unit/L [facility] ALT 54 0 - 55 unit/L [facility] Alk Phos 72 40 - 120 unit/L [facility] Total Bilirubin 0.7 0.2 - 1.3 mg/dL [facility] Estimated GFR 83 >=60 mL/min/1.73 m?? [facility] Comment: The eGFR was calculated using the CKD-EP I equation. As with all creatinine based estimates of kidney function, eGFR values calculated with the CKD-EPI equation are not accurate in patients wi th acute kidney failure, extremes of body mass or the acutely ill. [email or web address] [place] eGFR 96 >=60 mL/min/1.73 m?? [facility] Comment: The eGFR was calculated using the CKD-EP I equation. As with all creatinine based estimates of kidney function, eGFR values calculated with the CKD-EPI equation are not accurate in patients wi th acute kidney failure, extremes of body mass or the acutely ill. [email or web address]/[facility]nkf Specimen Anatomical Collection Method Collection Time Receive d Time (Source) Location / / Volume Laterality Blood specimen Venous Draw / 10/25/2017 11:48 10/26/19 18 (specimen) Unknown AM EDT 12:09 PM EDT Resulting Agency Comment Spec In Lab Ursula Haile MD CHEMISTRY ORDERABLES Performing Organization Address City/[facility]/ZIP Code Phon e Number [address] Hepatitis B Core Antibody, Total (10/25/2017 11:48 AM EDT) Analysis Performed At Patho logist Time Signature Hep B Core Ab Negative Negative [facility] Specimen Anatomical Collection Method Collection Time Receive d Time (Source) Location / / Volume Laterality Blood specimen Venous Draw / 10/25/2017 11:48 10/26/19 18 6:11 (specimen) Unknown AM EDT PM EDT Resulting Agency Comment Spec In Lab Ursula Haile MD CHEMISTRY ORDERABLES Performing Organization Address City/State/ZIP Code Phon e Number [address] C4 Complement (10/25/2017 11:48 AM EDT) P athologist Signature C4 Complement 21 10 - 40 [facility] mg/dL [facility] Specimen Anatomical Collection Method Collection Time Receive d Time (Source) Location / / Volume Laterality Blood specimen Venous Draw / 10/25/2017 11:48 10/26/19 18 6:11 (specimen) Unknown AM EDT PM EDT Resulting Agency Comment Spec In Lab Ursula Haile MD CHEMISTRY ORDERABLES Performing Organization Address City/State/ZIP Code Phon e Number [address] C3 Complement (10/25/2017 11:48 AM EDT) P athologist Signature C3 Complement 144 90 - 180 [facility] mg/dL [facility] Specimen Anatomical Collection Method Collection Time Receive d Time (Source) Location / / Volume Laterality Blood specimen Venous Draw / 10/25/2017 11:48 10/26/19 18 6:11 (specimen) Unknown AM EDT PM EDT Resulting Agency Comment Spec In Lab Ursula Haile MD CHEMISTRY ORDERABLES Performing Organization Address City/State/ZIP Code Phon e Number [address] Hepatitis C Antibody (10/25/2017 11:48 AM EDT) Analysis Performed At Patho logist Time Signature Hepatitis C Ab Negative Negative [facility] Specimen Anatomical Collection Method Collection Time Receive d Time (Source) Location / / Volume Laterality Blood specimen Venous Draw / 10/25/2017 11:48 10/26/19 18 6:11 (specimen) Unknown AM EDT PM EDT Resulting Agency Comment Spec In Lab Ursula Haile MD IMMUNOLOGY ORDERABLES Performing Organization Address City/State/ZIP Code Phon e Number [address] Hepatitis B Surface Antigen (10/25/2017 11:48 AM EDT) Analysis Performed At Patho logist Time Signature HepB Surface Negative Negative [facility] LABORATORY Specimen Anatomical Collection Method Collection Time Receive d Time (Source) Location / / Volume Laterality Blood specimen Venous Draw / 10/25/2017 11:48 10/26/19 18 6:11 (specimen) Unknown AM EDT PM EDT Resulting Agency Comment Spec In Lab Ursula Haile MD CHEMISTRY ORDERABLES Performing Organization Address City/State/ZIP [place] [address] Hepatitis B Surface Antibody (10/25/2017 11:48 AM EDT) P athologist Signature HepB Surface <3.5 IU/L [facility] Ab Quant [facility] Comment: HepB Surface Ab Quant: Unvaccinated: < 8.5 IU/L Vaccinated: > 11.5 IU/L HepB Surface Ab Negative [facility] Comment: Patient is presumed to be not vaccinated or immune to HBV infection. Expected Results: Vaccinated: Positive Unvaccinated: Negative Specimen Anatomical Collection Method Collection Time Receive d Time (Source) Location / / Volume Laterality Blood specimen Venous Draw / 10/25/2017 11:48 10/26/19 18 6:11 (specimen) Unknown AM EDT PM EDT Resulting Agency Comment Spec In Lab Ursula Haile MD IMMUNOLOGY ORDERABLES Performing Organization Address City/[facility]/ZIP [facility] Phon e Number [address] Proteinase-3 Antibody (10/25/2017 11:48 AM EDT) athologist Signature PR3 Ab <2.0 <=20.0 [facility] LABORATORY Specimen Anatomical Collection Method Collection Time Receive d Time (Source) Location / / Volume Laterality Blood specimen Venous Draw / 10/25/2017 11:48 10/26/19 18 3:10 (specimen) Unknown AM EDT PM EDT Resulting Agency Comment Spec In Lab Ursula Haile MD CHEMISTRY ORDERABLES Performing Organization Address City/[facility]/ZIP Code Phon e Number [address] Myeloperoxidase Ab (10/25/2017 11:48 AM EDT) P athologist Signature MPO Ab <2.0 <=20.0 [facility] Specimen Anatomical Collection Method Collection Time Receive d Time (Source) Location / / Volume Laterality Blood specimen Venous Draw / 10/25/2017 11:48 10/26/19 18 3:10 (specimen) Unknown AM EDT PM EDT Resulting Agency Comment Spec In Lab Ursula Haile MD CHEMISTRY ORDERABLES Performing Organization Address City/[facility]/ZIP Code Phon e Number [address] Proteinase-3 Antibody (10/25/2017 11:48 AM EDT) P athologist Signature PR3 Ab <2.0 <=20.0 [facility] Specimen Anatomical Collection Method Collection Time Receive d Time (Source) Location / / Volume Laterality Blood specimen Venous Draw / 10/25/2017 11:48 10/26/19 18 3:10 (specimen) Unknown AM EDT PM EDT Resulting Agency Comment Spec In Lab Ursula Haile MD CHEMISTRY ORDERABLES Performing Organization Address City/State/ZIP Code Phon e Number [address] Myeloperoxidase Ab (10/25/2017 11:48 AM EDT) P athologist Signature MPO Ab <2.0 <=20.0 [facility] Specimen Anatomical Collection Method Collection Time Receive d Time (Source) Location / / Volume Laterality Blood specimen Venous Draw / 10/25/2017 11:48 10/26/19 18 3:10 (specimen) Unknown AM EDT PM EDT Resulting Agency Comment Spec In Lab Ursula Haile MD CHEMISTRY ORDERABLES Performing Organization Address City/State/ZIP Code Phon e Number [address] Cytoplasmic Neutrophilic Ab (10/25/2017 11:48 AM EDT) athologist Signature C-ANCA Negative Negative [facility] Comment: Test Performed by: [facility] - [address] [address] P-ANCA Negative Negative [facility] Comment: Negative for cANCA and pANCA patterns by immunofluorescence. ADDITIONAL INFORMATIO N This test was developed and its performa nce characteristics determined by [facility] in a manner co nsistent with CLIA requirements. This test has not been donny ared or approved by the U.S. Food and Drug Administration. Test Performed by: [facility] [address] [place] [address] Specimen Anatomical Collection Method Collection Time Receive d Time (Source) Location / / Volume Laterality Blood specimen Venous Draw / 10/25/2017 11:48 10/26/19 18 1:52 (specimen) Unknown AM EDT PM EDT Resulting Agency Comment Spec In Lab Ursula Haile MD CHEMISTRY ORDERABLES Performing Organization Address City/[facility]/ZIP [facility] [place] [address] Protein Electrophoresis, serum (10/25/2017 11:48 AM EDT) Patholo gist Method Time Signature Total Prot 7.2 6.1 - 8.0 [place] Elec gm/dL [facility] Albumin Elect 4.86 3.60 - 6.00 [place] gm/dL [facility] Alpha1-Globul 0.14 0.10 - 0.30 [place] in gm/dL [facility] Alpha2-Globul 0.52 0.40 - 0.90 [place] in gm/dL [facility] Beta Globulin 0.70 0.50 - 1.00 [facility] gm/dL [facility] Gamma 0.98 0.50 - 1.30 [facility] Globulin gm/dL [facility] M1 Band None None [place] Detected Detected [facility] Specimen Anatomical Collection Method Collection Time Receive d Time (Source) Location / / Volume Laterality Blood specimen Venous Draw / 10/25/2017 11:48 10/26/19 18 6:11 (specimen) Unknown AM EDT PM EDT Resulting Agency Comment Spec In Lab Ursula Haile MD CHEMISTRY ORDERABLES Performing Organization Address City/[facility]/[place] [address] RAPHAEL (10/25/2017 11:48 AM EDT) P athologist Signature RAPHAEL Neg Neg [facility] LABORATORY Specimen Anatomical Collection Method Collection Time Receive d Time (Source) Location / / Volume Laterality Blood specimen 10/25/2017 11:48 8 3:10 (specimen) AM EDT PM EDT Resulting Agency Comment Spec In Lab Ursula Haile MD IMMUNOLOGY ORDERABLES Performing Organization Address City/[facility]/ZIP [facility] Phon e Number [address] CRP, acute inflammation (10/25/2017 11:48 AM EDT) P athologist Signature CRP 2.4 <=4.9 mg/L [facility] LABORATORY Specimen Anatomical Collection Method Collection Time Receive d Time (Source) Location / / Volume Laterality Blood specimen 10/25/2017 11:48 8 (specimen) AM EDT 12:07 PM EDT Resulting Agency Comment Spec In Lab Ursula Haile MD CHEMISTRY ORDERABLES Performing Organization Address City/[facility] Phon e Number [address] Sedimentation rate (10/25/2017 11:48 AM EDT) P athologist Signature Sed Rate 6 0 - 15 [facility] LABORATORY Specimen Anatomical Collection Method Collection Time Receive d Time (Source) Location / / Volume Laterality Blood specimen 10/25/2017 11:48 8 (specimen) AM EDT 12:07 PM EDT Resulting Agency Comment Spec In Lab Ursula Haile MD HEMATOLOGY ORDERABLES Performing Organization Address City/[facility]/ZIP [facility] [place] [address] DNA Antibody (Double-Stranded) (10/25/2017 11:48 AM EDT) P athologist Signature DNA Ab (DS) Neg Neg [facility] LABORATORY Specimen Anatomical Collection Method Collection Time Receive d Time (Source) Location / / Volume Laterality Blood specimen 10/25/2017 11:48 8 3:10 (specimen) AM EDT PM EDT Resulting Agency Comment Spec In Lab Ursula Haile MD CHEMISTRY ORDERABLES Performing Organization Address City/[facility]/ZIP Code Phon e Number [address] Extractable Nuclear Antigen (NASEEM) Ab (10/25/2017 11:48 AM EDT) [facility] Method Time Signature NASEEM Ab KLARISSA [place] Test ?Result ?Flag ??Unit ??RefValue [facility] Ab to Extractable Nuclear Ag Elizabet Hobbs LABORATORY ??SS-A/Ro Ab, IgG, S ?<0.2 ?U ? <1.0 (Negative) ??SS-B/La Ab, IgG, S ?<0.2 ?U ? <1.0 (Negative) ??Sm Ab, IgG, S ? <0.2 ?U ? <1.0 (Negative) ??TILE INSPECTOR Ab, IgG, S ?0.2 ? U ? <1.0 (Negative) ??Scl 70 Ab, IgG, S ? <0.2 ?U ? <1.0 (Negative) ??Julissa 1 Ab, IgG, S ? <0.2 ?U ? <1.0 (Negative) ?Test Performed by: ?[facility] ?[address] [place] [address] Specimen Anatomical Collection Method Collection Time Receive d Time (Source) Location / / Volume Laterality Blood specimen 10/25/2017 11:48 8 1:52 (specimen) AM EDT PM EDT Resulting Agency Comment Spec In Lab Ursula Haile MD IMMUNOLOGY ORDERABLES Performing Organization Address City/State/[place] [address] XR S-I Joints (Generic) [...] documented in this encounter Visit Diagnoses Diagnosis Raised antibody titer Other and unspecified nonspecific immuno logical findings Rt facial numbness Disturbance of skin sensation Chronic right SI joint pain Disorders of sacrum Abnormal laboratory test Other abnormal clinical finding Chronic right SI joint pain Disorders of sacrum documented in this encounter Care Teams Tank Cooper Relationship Specialty Start Date End Date Enrike Melgoza MD PCP - General 01/27/14 11/01/[address] [place] [id number] documented as of this encounter
--- OUTSIDE RECORDS SUMMARY | 2021-12-31 12:15 | XMS_ITS | Encounter Summary ---
:1975 Author Organization [facility] [place] [address] Care Team Providers Name Role Phone Enrike Melgoza MD Primary Care Provider Encounter Details Date Type Department Care Team Description 12/11/2013 Hospital Encounter XRay at [address] [place] [address] Social History Tobacco Use Types Packs/Day Years [...] filedocumented as of this encounter Visit Diagnoses Not on filedocumented in this encounter Care Teams Tire Mold Tester Relationship Specialty Start Date End Date Enrike Melgoza MD PCP - General 03/05/12 12/23/[address] [place] [id number] documented as of this encounter
--- OUTSIDE RECORDS SUMMARY | 2021-12-31 12:15 | XMS_ITS | Encounter Summary ---
:1975 Author Organization [facility] [place] [address] Care Team Providers Name Role Phone Enrike Melgoza MD Primary Care Provider Encounter Details Date Type Department Care Team Description 12/18/2013 Telephone Pain Management at Lucrecia Serna, [place] [address] Social History Tobacco Use Types Packs/Day [...] on file documented as of this encounter Miscellaneous Notes Telephone Encounter - Lucrecia Moreno, RN - 12/18/2013 11:11 AM EDT Pain Management Center Post-Procedure Phone Note Patient: Amaury Armendariz [id number] Post-procedure phone call from patient to report his response to the right lumbar medial branch block procedure performed on 12/17/2013 in the Pain Management Center by Ben Lemons DO. This is patient's : first medial branch block Patient reports that after the procedure he experienced: _x_ Patient reported post-block numeric pain scale: 0 /10 (average pain since procedure) x__ Post-procedure pain has been reduced by 100%. (> 80% Medicare/MVP/Medicaid) If pain is reduced, it lasted: No less than 4 hours Yes 4 hours or greater Yes 24 hours or greater. Based on the information provided above and after discussion with the patient, the following actionswill be taken: x__ Patient meets criteria for radiofrequency treatment and would like to proceed with a Lumbar Radiofrequency procedure with Ben Lemons DO. _x_ Patient will be contacted by dental secretary in Pain Management Center as described above. _x_ Patient was given general information about the procedure and all their questions were answered to their satisfaction. Patient on anticoagulant medication: No Patient has pacemaker/defibrillator: No Patient has the appropriate phone number and understands that he may contact the Pain Management Center at any time with questions or concerns. Lucrecia Moreno RN documented in this encounter Plan of Treatment Not on filedocumented as of this encounter Visit Diagnoses Not on filedocumented in this encounter Care Teams Restaurant Host/Hostess Relationship Specialty Start Date End Date Enrike Melgoza MD PCP - General 03/05/12 12/23/[address] [place] [id number] documented as of this encounter
--- OUTSIDE RECORDS SUMMARY | 2021-12-31 12:15 | XMS_ITS | Encounter Summary ---
:1975 Author Organization [facility] Address [place] [id number] Care Team Providers Name Role Phone Enrike Melgoza MD Primary Care Provider Reason for Referral Physical Therapy (Routine) - Closed Specialty Diagnoses / Procedures Referred By Contact Refer red To Contact Physical Therapy Diagnoses Mechanical low back pain Qiana Moran [facility] Spine Pt VACCINE SPECIALIST [facility] [place] [address] [place] [address] Referral ID Status Reason Start Date Expiration Date Visits V isits Requested Authorized [id number] Closed Evaluate and 09/04/2013 03/03/2014 3 3 Treat Reason for Visit Reason Comments Back Pain lower back pain Encounter Details Date Type Department Care Team Description 09/04/2013 Office Visit Spine Center at Qiana Morani adryan low back [place] YOAV Garza pain-right sided [facility] (Pr imary Dx) [place], [place] SPINE CENTER [address] [place] [address] [phone] Social History Tobacco Use Types Packs/Day Years [...] documented as of this encounter Progress Notes Dean Qiana E, YOAV - 09/04/2013 8:43 AM EDT CHIEF COMPLAINT: Right sided low back pain. HISTORY OF PRESENT ILLNESS: Amaury Armendariz is a 38 y.o. male seen in the Spine Center today in consultation for Frank Ann MD (PCP). He presents with a chief complaint of right sided low back pain, which has been present for a number of years but became more bothersome to him since Fall 2012. He denies groin pain, and reports his right low back pain only occasionally will extend into his right buttock or hip. He denies any radicular symptoms in his lower extremities. He reports he could, barely move, after playing hockey this winter or after riding in a golf cart this spring. Pain in this area is aggravated by golfing, riding in a golf cart, twisting, playing hockey, extended sitting or standing, and relieved by movement/walking. His pain levels have improved from 5/10 range to 2/10 range since seeing a chiropractor and physical therapist over the last several months, but he reports his pain is still a, nuisance, to him. Treatments to date have included: Chiropractor, PT at [facility], Left heel lift, acupuncture,Biofreeze, Flexeril & ibuprofen, all with some mild pain relief and improved range of motion. REVIEW OF SYSTEMS: negative for any GI (except GERD) or symptoms, fevers, night sweats, chills, weight loss, saddle anesthesia or loss of bowel or bladder control. He denies myelopathic symptoms such as gait disturbance, gait imbalance, or difficulty with fine motor control. He sleeps well. PAST MEDICAL HISTORY: GERD, elevated fasting glucose, & obesity. PAST SURGICAL HISTORY: [place] tooth extraction & eye laser surgery. FAMILY HISTORY: Significant for heart disease. 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 He has missed work a few days over the past year due to his low back pain. He does not smoke and drinks alcohol on the weekends (6 beers over the weekend) or when he plays golf (2-3 beers). MEDICATIONS & ALLERGIES: reviewed with the patient and are in eD-H. PHYSICAL EXAMINATION: Height: 5'9. Weight: 207. BMI: 30.9. This is a healthy appearing overweight male in no acute distress. He ambulates with a steady, fluid gait. He is able to walk on his heels and toes without weakness. He is able to perform tandem heel-toe walk without ataxia. He stands with relatively level shoulders but his right hip and knee slightly higher than the left. His lumbar spine is non-tender to palpation. His right SIJ and sciatic notch ismildly tender to palpation. Trunk flexion is 90 degrees and painfree. Trunk extension is 20 degrees and painful in his right lumbar spine. Straight leg raise and cross straight leg raise are negative bilaterally. Femoral stretch test is negative bilaterally. Strength is 5/5 in all lower extremity muscles groups and bilateral EHLs. Touch sensation is normal and symmetrical in bilateral lower extremities. Deep tendon reflexes are 2/4 at the knees and 2/4 at the ankles bilaterally. There is no clonus. Babinski is with down-going toes bilaterally. Lilly's sign is absent bilaterally. Lhermitte's signis absent. Hip range of motion is full and pain free bilaterally in sitting and prone positions. Jacquelyn's, Gaenselen's & Frank's tests are negative on the right. Hopping on his right foot does not aggravate his right low back pain. IMAGING: No recent spinal imaging. ASSESSMENT: Mechanical low back pain, right sided. PLAN: Non-surgical options including PT, NSAIDs and injections were reviewed with the patient. 1) Referral to Spine Center PT for mechanical diagnosis and treatment/to assess for a directional preference. 2) He has a copy of the book, Treat Your Own Back, given to him by PT at [facility]. 3) I encouraged him to take ibuprofen up to 800mg Q8 hours or Aleve 2 tabs BID as needed with food. Follow-Up: If his symptoms worsen or fail to improve with PT. The next step would be to consider a right lumbar medial branch block and we would need to order a lumbar x-ray for this type of injection.His SIJ testing was negative on physical exam. All questions were answered and the patient is in agreement with the above treatment plan. This was a counseling dominated visit with approximately 25 minutes of this 40 minute encounter spent in face to face counseling, medical decision making, and review of treatment options. Thank you for the opportunity to participate in the care of this patient. Qiana Moran MS, VACCINE SPECIALIST, DIGITAL TRAFFIC COORDINATOR-C [facility] documented in this encounter Plan of Treatment Scheduled Referrals Name Type Priority Associated Diagnoses Order S chedule Referral to Outpatient Referral Routine Mechanical low back O rdered: Physical Therapy pain-right sided 014 documented as of this encounter Visit Diagnoses Diagnosis Mechanical low back pain-right sided - P rimary Lumbago documented in this encounter Care Teams Poultry Boner Relationship Specialty Start Date End Date Enrike Melgoza MD PCP - General 03/05/12 12/23/[address] [place] [phone] documented as of this encounter
--- OUTSIDE RECORDS SUMMARY | 2021-12-31 12:15 | XMS_ITS | Encounter Summary ---
:1975 Author Organization [facility] [place] [address] Care Team Providers Name Role Phone Enrike Melgoza MD Primary Care Provider Encounter Details Date Type Department Care Team Description 08/28/2013 Follow-Up Physical Therapy at Mick Vance, PT [facility] [address] PHYSICAL MEDICINE & [place] [address] Low back pain (Primary Dx); [facility] Enrike Melgoza MD [address] [place] [phone] Chronic right SI joint pain [address] [place] [address] Social History Tobacco Use Types Packs/Day Years [...] as of this encounter Progress Notes Galdino Vance, PT - 08/28/2013 3:47 PM EDT Images from the original note were not included. Physical Therapy Progress Note - On-Hold/Discharge Summary Total treatment time: 40 minutes Total timed code treatment: 35 minutes Date of Exam/First Treatment: 07/04/2013 Date of onset: 2012 Referring Provider: Lonnie KOENIG Authorizing Provider: Frank Ann MD Follow up visit for patient with: 1. Low back pain 2. Chronic right SI joint pain S: Pt reports he is feeling ok overall, but he still has some pain into the R SI Joint. He has a f/uin the spine center next week for possible SI injections or other recommendations. Most days he is ok, and he reports the stretches have helped his overall sx's. He feels that if he continues with his regular routine of stretching and heat/ice as neccessary he can manage his sx's on his own. O: Therex: Strength/Endurance/ROM (20928) 25 min ?? Treadmill 13 min 3.0 - 3.5 mph ?? Review of HEP including adding new stretches ?? Quadruped sit back ?? Iliocostalis ?? Piriformis ?? Discussed next steps to f/u in Spine Center. Yuan Thornton, Treat Your Own Back Book given and discussed Ch 5 for exercises to integrate at home. A: Mr. Armendariz has seen reduction in his pain sx's of the lower back but still has some SI related sx's that occur with some of his recreational activities (usually not during the activity but in the recovery). We discussed that he has a well rounded exercise routine that targets his specific area of pain sx's and that he should continue integrating these into his regular exercise routine. At this time we'll place him on hold so he can come back if he chooses to restart with clinic program. Our primary focus of sessions has been developing his home program and self-treatment methods using stretching, heat/cold modalities. We have not integrated many clinic activities because his sx's are low-levelwhen he is here. It is in Mr. Armendariz's best interest to continue his daily stretching routine for best outcomes. P: On Hold 4 weeks. He is following up in Spine Center next week for next steps. Previous Clinic Exercises/Activities: ?? Manual Therapy 10 min ?? STM to lumbar paraspinals - Prone with pillow under abdomen ?? Quadruped Stretches 2x30 ?? lumbar paraspinals ?? Iliocostalis ?? Stretches Standing 2x20 ea. NEW (Golf Stretches) ?? Cane Side bending (iliocostalis) ?? Cane Rotation (multifidi/paraspinals) ?? Cane Extension ?? Stretches 2x30 Passive ?? Hamstring ?? Piriformis ?? Quadruped Bird Dog (Medora UE/LE ext) 5x15 E-Stim - 4 leads to lumbar paraspinals, 80-150 IFC with cold pack 12 min (see image for electrode placement) Current goals: GOALS: Therapy Short Term Goals (3 weeks) Patient will: 08/07/13 MET 1. Be indep with home exercise program. 08/07/13 ONGOING 2. report ability to sit for 1 hour without increased difficulty in his lower back as reported on the Mod. Oswestry. 08/07/13 MET 3. report ability to stand for 1 hour without increased difficulty in his lower back as reported on the Mod. Oswestry. Therapy Director Of Retention Goals (6 weeks) Patient will: 08/07/13 ONGOING 1. Demonstrate an improved Modified Oswestry score by reduction of 9 points for statistically significant improvement in functional ability. 08/07/13 ONGOING 2. report ability to sit for as long as he likes without difficulty in his lower back as reported on the Mod. Oswestry. 08/07/13 ONGOING 3. report ability to stand for as long as he needs without increased difficulty in his lower back as reported on the Mod. Oswestry. 08/07/13 ONGOING 4. report ability to return to 9 holes of golf without report of increased pain in his lower back during recovery from activity documented in this encounter Plan of Treatment Not on filedocumented as of this encounter Visit Diagnoses Diagnosis Low back pain - Primary Lumbago Chronic right SI joint pain Disorders of sacrum documented in this encounter Care Teams Community Engagement Coordinator Relationship Specialty Start Date End Date Enrike Melgoza MD PCP - General 03/05/12 12/23/[address] [place] [id number] documented as of this encounter
--- OUTSIDE RECORDS SUMMARY | 2021-12-31 12:15 | XMS_ITS | Encounter Summary ---
:1975 Author Organization [facility] [place] [address] Care Team Providers Name Role Phone Enrike Melgoza MD Primary Care Provider Encounter Details Date Type Department Care Team Description 07/17/2013 Follow-Up Physical Therapy at Alina Valero L ow back pain (Primary [address] JANITORIAL MANAGER Dx) [address] [place] [address] PHYSICAL MEDICINE & [place] [address] Social History Tobacco Use Types Packs/Day Years Used Date Never Smoker Smokeless Tobacco: Never Used Alcohol Use Standard Drinks/Week Comments Yes 5 (1 standard drink = 0.6 oz pure alcoho l) Sex Assigned at Date Recorded Not on file documented as of this encounter Progress Notes Alian Valero JANITORIAL MANAGER - 07/17/2013 4:02 PM EDT Physical Therapy Progress Note Total treatment time: 45 minutes Total timed code treatment: 45 minutes Follow up visit for patient with 1. Low back pain Date of Exam/First Treatment: 07/04/2013 Date of onset: 2012 Referring Provider: Lonnie KOENIG Authorizing Provider: Enrike Melgoza MD S: Patient reports he was very sore after golf 2 weekends ago, not bad after last Monday when he walked the course. O: Therex and Manual: ?? LTR ?? h/s stretch ?? transverse abdominal training: LTR, low level bug, LTR with LE on ball and wt ball in hands,flex/ext with UE/LE ?? bird dog ?? TTP hip flexor stretch ?? standing hip flexor stretch cuing for core stab ?? STM (B) thoracolumbar paraspinals 10 min A: Patient will benefit from greater core (transverse abdominals) engagement during activities. P: Continue physical therapy per PT POC and goals. GOALS: Therapy Short Term Goals (3 weeks) Patient will: 1. Be indep with home exercise program. 2. report ability to sit for 1 hour without increased difficulty in his lower back as reported on the Mod. Oswestry. 3. report ability to stand for 1 hour without increased difficulty in his lower back as reported on the Mod. Oswestry. Therapy Skilled Nursing Goals (6 weeks) Patient will: 1. Demonstrate an improved Modified Oswestry score by reduction of 9 points for statistically significant improvement in functional ability. 2. report ability to sit for as long as he likes without difficulty in his lower back as reported onthe Mod. Oswestry. 3. report ability to stand for as long as he needs without increased difficulty in his lower back asreported on the Mod. Oswestry. 4. report ability to return to 9 holes of golf without report of increased pain in his lower back during recovery from activity documented in this encounter Plan of Treatment Not on filedocumented as of this encounter Visit Diagnoses Diagnosis Low back pain - Primary Lumbago documented in this encounter Care Teams Clinical Veterinarian Relationship Specialty Start Date End Date Enrike Melgoza MD PCP - General 03/05/12 12/23/[address] [place] [address] documented as of this encounter
--- OUTSIDE RECORDS SUMMARY | 2021-12-31 12:15 | XMS_ITS | Encounter Summary ---
:1975 Author Organization [facility] [place] [address] Care Team Providers Name Role Phone Enrike Melgoza MD Primary Care Provider Encounter Details Date Type Department Care Team Description 12/13/2013 Telephone Pain Management [place] [address] Social History Tobacco Use Types Packs/Day [...] this encounter Miscellaneous Notes Telephone Encounter - Amalia Thomas LPN - 12/16/2013 8:33 AM EDT Amaury Armendariz :1975 Contact made with patient: I spoke to Mr. Armendariz at 8:33 AM regarding his upcoming Right lumbar medial branch block scheduled on 12/17/13 (date) scheduled at 10:25 (time) with Dr. Ben Lemons DO. Medication and Allergy reconciliation: 1. Changes were made in the telephone encounter per patient; marked as reviewed, and closed. 2. Patient confirmed no IVP dye allergy. 3. Have you had any steroid injections anywhere in your body within the last two weeks? no Arrival time: The patient was instructed to arrive at 9:55 (30 minutes prior to procedure start time - 60 minutes prior for RF patients with a pacemaker) on 12/17/13 (date of procedure). Civil Draftsman: The patient was reminded that they need to have a regional truck driver accompany them to his procedure who will remain onsite. Antibiotics/Skin assessment/Illness symptoms/Pain level assessment : 1. The patient confirmed that he is not taking antibiotics at this time. 2. The patient confirmed that he does not have any rashes, blisters, or skin breakdown on their body. 3. The patient confirmed that he does not have any active infections. 4. The patient confirmed that he does not have any symptoms of illness: fever, chills, cold, flu, nausea, vomiting. 5. The patient confirmed that he isstill experiencing significant pain. (Significant pain is definedas interfering with performing ADL.) Pain and Anti-anxiety Medications: 1. Nerve Block Procedure Patients: Patient was instructed NOT to take their pain medications on the day of the procedure and anti-anxiety medications are part of their daily medication regiment; they can and should continue taking that medication. 2. All Other Procedure Patients: The patient was instructed that if they take daily pain or anti-anxiety medications, they can and should continue taking on the day of the procedure. Does patient have history of any diagnosed bleeding disorders: No Anticoagulants: No Implant: Patient has pacemaker/defibrillator: No Prior to checking in at [employer], please be sure to empty your bladder. Patient confirmed understanding that if they do not follow the above their instructions, their procedure is likely to be cancelled. Amalia Thomas LPN Telephone Encounter - Mayela Monk RN - 12/13/2013 8:40 AM EDT Amaury Armendariz :1975 Message left: I left a message on answering machine Mr. Armendariz at 8:40 AM regarding his upcoming Right lumbar medial branch block with Dr. Ben Ithaca, DO. Message included the followin. Patient instructed to arrive at 9:55 am (30 minutes prior to procedure start time) on 12/17/2013 with their regional truck driver. 2. Following instructions left in the message: - Call the Pain Clinic Nurse at for: ~Procedure instructions. - Do not take any pain medications on the day of your procedure. Mayela Monk RN documented in this encounter Plan of Treatment Not on filedocumented as of this encounter Visit Diagnoses Not on filedocumented in this encounter Care Teams Setter Cold Rolling Machine Relationship Specialty Start Date End Date Enrike Melgoza MD PCP - General 03/05/12 12/23/[address] [place] [id number] documented as of this encounter
--- OUTSIDE RECORDS SUMMARY | 2021-12-31 12:15 | XMS_ITS | Encounter Summary ---
:1975 Author Organization [facility] [place] [address] Care Team Providers Name Role Phone Enrike Melgoza MD Primary Care Provider Reason for Visit Reason Comments Back Pain Encounter Details Date Type Department Care Team Description 09/11/2013 Office Visit Functional Mormon Galdino Lawson, Mechanical low back Program at [facility] ad PT pain-right sided [address] [facility] (Primary Dx) [place] [address] [place] [address] Social History Tobacco Use Types Packs/Day Years [...] encounter Progress Notes Galdino Lawson, PT - 09/11/2013 3:39 PM EDT [facility] PHYSICAL THERAPY FOLLOW-UP Subjective: Utilized self care exercises as planned, each session provides some symptomatic relief. Pain affects primarily right side of low back, none in buttock since last visit. Prolonged standing is most problematic. Objective testing: Lumbar spine AROM degrees Forward bend standing 85 Backward bend standing 15 Other: Assessment and Planning Exercise testing: Pre-test mild low back pain standing. Flexion in right step standing increased, not worse. Rotation in flexion knees left increased, worse. Rotation in flexion knees right decreased, better. Right side glide standing increased, worse. Home exercise program: Reviewed exercise objectives and safety principles. The self care routine nowconsists of: Rotation in flexion knees right x 10 repetitions followed by shifting hips off center to the left before an additional 10 repetitions, 3 sessions per day. Flexion sitting x 10 repetitions, 3 sessions per day. Some benefit thus far with flexion strategies. Rotation in flexion knees right with progressive shifts of pelvis left improved standing posture and standing extension range of motion today as a result.Requires further progression to achieve treatment goals. Knows to call the [facility] with any questions or concerns. Plan: Recommend PT follow up in 1 week. Consider combining existing strategies as needed. Length of visit: A total of 30 minutes was spent to test and develop appropriate self care exercise strategies. documented in this encounter Plan of Treatment Not on filedocumented as of this encounter Visit Diagnoses Diagnosis Mechanical low back pain-right sided - P rimary Lumbago documented in this encounter Care Teams Automatic Edger Relationship Specialty Start Date End Date Enrike Melgoza MD PCP - General 03/05/12 12/23/[address] [place] [id number] documented as of this encounter
--- OUTSIDE RECORDS SUMMARY | 2021-12-31 12:15 | XMS_ITS | Encounter Summary ---
:1975 Author Organization [facility] Address [place] [id number] Care Team Providers Name Role Phone Enrike Melgoza MD Primary Care Provider Encounter Details Date Type Department Care Team Description 08/14/2017 Telephone Neurology [place] [facility] Amaury Oleary MD [facility] [place] [phone] NEUROLOGY DEPT [phone] [place] [id number] (Wo rk) Social History Tobacco Use Types [...] this encounter Miscellaneous Notes Telephone Encounter - Amaury Oleary MD - 08/14/2017 10:39 PM EDT Call from OSH Patient comes in with facial numbness. Has 4 days of numbness in, V2 distribution, R nose, and infraorbital, and upper lip on R. No headaches, no infectious symptoms,no trauma. CTH non contrast was negative. No rashes or tick bite. RECOMMENDATIONS: -Neuropathy screen: B12, SPEP, HIV, Hep B/C -consider lyme -consider MRI Brain w/ taye as outpatient -consider EMG -consider LP and CSF studies -he will likely follow-up with neurology there but if that did not work out we will see him here Amaury Oleary MD PGY-3 Neurology Resident documented in this encounter Plan of Treatment Not on filedocumented as of this encounter Visit Diagnoses Not on filedocumented in this encounter Care Teams Legal Entity Controller Relationship Specialty Start Date End Date Enrike Melgoza MD PCP - General 01/27/14 11/01/[address] [place] [id number] documented as of this encounter
--- OUTSIDE RECORDS SUMMARY | 2021-12-31 12:15 | XMS_ITS | Encounter Summary ---
:1975 Author Organization [facility] [place] [address] Care Team Providers Name Role Phone Enrike Melgoza MD Primary Care Provider Encounter Details Date Type Department Care Team Description 08/07/2013 Follow-Up Physical Therapy at Mick Vance, PT Low back pain (Primary [address] [facility] Dx) [address] [place] [address] PHYSICAL MEDICINE & [phone] [place] [address] Social History Tobacco Use Types Packs/Day Years Used Date Never Smoker Smokeless Tobacco: Never Used Alcohol Use Standard Drinks/Week Comments Yes 5 (1 standard drink = 0.6 oz pure alcoho l) Sex Assigned at Date Recorded Not on file documented as of this encounter Progress Notes Galdino Vance, PT - 08/07/2013 3:45 PM EDT Images from the original note were not included. Physical Therapy Progress Note - Re-Evaluation Total treatment time: 40 minutes Total timed code treatment: 35 minutes Date of Exam/First Treatment: 07/04/2013 Date of onset: 2012 Referring Provider: Lonnie KOENIG Authorizing Provider: Frank Ann MD Follow up visit for patient with: 1. Low back pain S: Pt reports he still has some pain on days. He had acupuncture yesterday and that seems to help. He has been doing his stretches. He feels better overall. Today is a better day. Some days he can feelit more than other days. Rates 1- 2/10 today. He hasn't had 6-7/10 pain in awhile. He did golfing on Monday (using golf cart) and this time he did pretty well in his recovery. He is meeting with his new PCP on 08/21/13. O: Manual Therapy (36553) 10 min and Therex: Strength/Endurance/ROM (89610) 25 min ?? Treadmill 11 min 3.0 - 3.5 mph Range of motion: Range of motion (deg) lumbar flexion 0-45 extension 0-20 SB right 0-25 SB left 0-25 rotation right 0-40 rotation left 0-48 hip flexion L: 0-80 R: 0-75 abduction L: 0-50 R: 0-51 IR L: 0-46 R: 0-50 ER L: 0-40 R: 0-52 * = Performed with Increased pain NT = Not Tested Strength ( /5) Hip flexion (L2) Hip abd Hip add Hip IR Hip ER Knee Ext (L3) Knee Flexion (S2) Right 5/5 5/5 5/5 5/5 5/5 5/5 5/5 Left 5/5 5/5 5/5 5/5 5/5 5/5 5/5 Special Tests: Affected side: right TEST NAME OUTCOME PURPOSE MC's test - Hip / SI pathology Forward Flexion test (standing / sitting) - Ilium Sacrum mobility Gillet's March test - Innominate mobility Piriformis test + Piriformis tightness Lumbar Quadrant test - Lumbar Nerve roots & Intervertebral foramen Lumbar Spring test - SI pathology Prone Knee Bending + Neural mobility - Femoral, Lat Femoral Cutaneous, Saphenous N. Quadratus test - SI Compression not performed SI pathology SI Distraction not performed SI pathology SLR test - Neural mobility - Sciatic, Tibial, Sural, Common Peroneal N. Slump test - Neural mobility Stoop test not performed Neurogenic vs Vascular Intermittent Claudication Jalen test + Hip Flexors tightness Trendelenburg's Test - Gluteus Medius weakness Functional Assessment Tool: Modified Oswestry: Higher score = Increased Disability ?? Manual Therapy 10 min ?? STM to lumbar paraspinals - Prone with pillow under abdomen ?? Quadruped Stretches 2x30 ?? lumbar paraspinals ?? Iliocostalis A: Mr. Armendariz demonstrates improvements in his functional mobility as assessed on the Mod. Oswestryand physical measures. We discussed that he will self manage his sx's for another few weeks and thenfollow up in the clinic if needed. He has 1 appointment scheduled which he will cancel if he does not need it. Mr. Armendariz was advised to be diligent with his HEP and stretching routine for best effects of managing sx's. . P: Cont physical therapy for strengthening, improved flexibility, improved functional mobility. Previous Clinic Exercises/Activities: ?? Stretches Standing 2x20 ea. NEW (Golf Stretches) ?? Cane Side bending (iliocostalis) ?? Cane Rotation (multifidi/paraspinals) ?? Cane Extension ?? Stretches 2x30 Passive ?? Hamstring ?? Piriformis ?? Quadruped Bird Dog (Carmel UE/LE ext) 5x15 E-Stim - 4 leads [...] as reported on the Mod. Oswestry. Therapy Maintenance Supervisor 2Nd Shift Goals (6 weeks) Patient will: 08/07/13 ONGOING [...] Lumbago documented in this encounter Care Teams Business Systems Analyst Relationship Specialty Start Date End Date Enrike Melgoza MD PCP - General 03/05/12 12/23/[address] [place] [id number] documented as of this encounter
--- OUTSIDE RECORDS SUMMARY | 2021-12-31 12:15 | XMS_ITS | Encounter Summary ---
:1975 Author Organization [facility] [place] [address] Care Team Providers Name Role Phone Enrike Melgoza MD Primary Care Provider Encounter Details Date Type Department Care Team Description 01/13/2014 Telephone Pain Management at Lauren [place], [place] [address] Social History Tobacco Use Types Packs/Day Years [...] this encounter Miscellaneous Notes Telephone Encounter - Lauren Gonzalez, [place] - 01/13/2014 9:21 AM EST Amaury Armendariz :1975 Message left: I left a message on answering machine Mr. Armendariz at 9:21 AM regarding his upcoming Right lumbar radiofrequency with Dr. Ben Lemons DO. Message included the followin. Patient instructed to arrive at 1030 (30 minutes prior to procedure start time) on 01/15/14 (dateof procedure) with their set key driver. 2. Following instructions left in the message: - Bring Updated list of medications including dosage and reason for taking. - Call the Pain Clinic Nurse at for: ~Procedure instructions. ~If you are taking antibiotics. ~If you have any signs or symptoms of infection, cold or flu. ~If you have any skin breakdown (rashes, cysts, or abscess.) ~If you are taking anticoagulants / blood thinners (Plavix, Pletal, Lovenox, Coumadin, etc). ~If you had any steroid injections anywhere in your body within the last two weeks? 3. If patient NPO: No food after 0500 (6 hours prior to procedure start time); clear fluids only up until 0900 (2 hours prior to procedure start time) Lauren Gonzalez LPN documented in this encounter Plan of Treatment Not on filedocumented as of this encounter Visit Diagnoses Not on filedocumented in this encounter Care Teams Hip Hop Dancer Relationship Specialty Start Date End Date Enrike Melgoza MD PCP - General 12/26/13 01/26/[address] [place] [id number] documented as of this encounter
--- OUTSIDE RECORDS SUMMARY | 2021-12-31 12:15 | XMS_ITS | Encounter Summary ---
:1975 Author Organization [facility] [place] [address] Care Team Providers Name Role Phone Enrike Melgoza MD Primary Care Provider Reason for Visit Reason Comments Annual Exam pt is having problems with b ack Encounter Details Date Type Department Care Team Description 08/21/2013 Office Visit Internal Medicine at [facility], Annual physical exam (Primary Dx); Jesse Saini MD Obesity; [address] [facility] Chronic right SI joint pain; [place], [place] Need for gflucuyghu-nmmgbyu-fvguqrthb (T dap) vaccine [id number] GENERAL INTERNAL [phone] MED-LY[facility] [place], [place] [address] (Wo rk) Social History Tobacco [...] Sign Reading Time Taken Comments Blood Pressure 100/66 08/21/2013 8:40 AM EDT Pulse 72 08/21/2013 7:48 AM EDT Temperature 36.9 ??C (98.4 ??F) 08/21/2013 7:48 AM EDT Respiratory Rate 12 08/21/2013 7:48 AM EDT Oxygen Saturation 98% 08/21/2013 7:48 AM EDT Inhaled Oxygen Concentration - - Weight 94.2 kg (207 lb 9.6 oz) 08/21/2013 7:48 AM EDT Height 174.8 cm (5' 8.82) 08/21/2013 7:48 AM EDT Body Mass Index 30.82 08/21/2013 7:48 AM EDT documented in this encounter Patient Instructions Patient InstructionsFrFrank sutton MD - 08/21/2013 8:52 AM EDT - labs: lipids, fasting glucose. I will email you the results through myD-H. - you received TDaP today - We will get your Xray results and depending on the findings, arrange for a steroid injection to the S-I joint - I would suggest the following diet changes: reintroduce breakfast to minimize late evening snacking; make lunch the 'biggest' meal of the day; portion control: make vegetable 1/2 of your plate, with 1/4 being carb, 1/4 being protein - You should aim for three 60-90 minute sessions of moderate-strenuous, sustained activity per week for weight loss documented in this encounter Progress Notes [facility] MD - 08/21/2013 8:09 AM EDT Subjective: Patient ID: Amaury Armendariz is a 38 y.o. male. HPI Here to establish care/have annual exam. Has had low back pain for months. Is working with a chiropractor, doing accupuncture, doing yoga. The pain is 'tolerable' in most spots except for the lower right back. He has done PT with folks here at [facility] and was told his pain may be in the sacro-iliac joint. His flexibility is improving buton a good day he can still 'feel the pain.' He noticed it a lot while playing hockey during the winter, which is when he started to see a chiropractor. He takes Ibuprofen pre-emptively before exercise (500 mg or so). He has used Dickson-Dominguez or Biofreeze. He has also been given Flexeril but it has given him a hangover effect that he can't tolerate. 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 His left leg is shorter than his right so he wears a lift in that shoe. He is able to play 18 holes of golf. Today the pain is a 1 or 2; it never gets to the point where he can't get out of bed. No burning when he voids; no bloody diarrhea, no excessive flatulence or irritable bowel complaints. No blurry vision/vision issues. Diet: skips breakfast some days, but when he eats it it is yogurt or toast. He also occasionally skips lunch or eats on the run. For dinner, grills a lot (chicken, steak); not many veggies. Drinks a lot of water. No coffee. Has an occasional soda or energy drink if he is 'dragging his feet.' He snacksat the office (yogurt, granola bars, bananas). Exercise: Golfs. Plays hockey once weekly during the thacker. Mountain bikes. Walks frequently, snowshoes in the winter. Just started doing yoga. Has free weights at home. Always takes the stairs. Lipids: has been years Colonoscopy: N/A Other age appropriate screenings: denies any RF for HIV Influenza: deferred Other Immunizations: TDaP today Depression: PHQ9 Questionnaires Data (Clinic and Pt Entered): Today's value PHQ-9 QUESTIONNAIRE (AMB) 08/15/2013 PHQ - 9 Score (Clinic) - Little interest or pleasure (Clinic) - Little interest or pleasure (Patient) Not at all Down, depressed, hopeless (Clinic) - Down, depressed, hopeless (Patient) Not at all Domestic Violence: denies feeling threatened, abused, kicked, harassed or otherwise made to feel unsafe at home in the past 3 months Review of Systems Constitutional: Negative for fever, chills, appetite change and fatigue. Eyes: Negative for visual disturbance. Respiratory: Positive for cough. Negative for shortness of breath and wheezing. Has a little dry cough c/w his seasonal allergies. Cardiovascular: Negative for chest pain. Gastrointestinal: Negative for nausea, vomiting, abdominal pain, diarrhea and constipation. Genitourinary: Negative for dysuria and hematuria. Musculoskeletal: Positive for back pain. Skin: Negative for rash. Neurological: Negative for headaches. Psychiatric/Behavioral: Negative for sleep disturbance. Objective: Physical Exam Constitutional: The patient appears well-developed and well-nourished. HENT: Normal B/L otoscopic exam. Moist oral mucosa. Head: Normocephalic. Eyes: Pupils are equal, round, and reactive to light. Neck: Normal range of motion. Neck supple. No thyromegaly present. Cardiovascular: Normal rate, regular rhythm and normal heart sounds. Pulmonary/Chest: Effort normal and breath sounds normal. Abdominal: Soft. Bowel sounds are normal. The patient exhibits no distension and no mass. There is no tenderness. There is no rebound and no guarding. Neurological: The patient is alert with normal reflexes in bilateral upper and lower DTRs. 5/5 strength in bilateral upper and lower extremity major muscle groups; no focal weakness or sensory deficitsnoted. MSK: Some mild tenderness with palpation in the right lower back (lumbar level) and more so over theright buttock. Straight leg raise testing is negative bilaterally. MC testing is positive (elicited pain in the right buttock). Skin: Skin is warm and dry. No rash of significance noted. Psychiatric: The patient has a normal mood and affect, and normal behavior. Assessment and Plan: A/P: 38 yo M with no significant PMHx here to establish care. Has some chronic low right back pain with exam findings suggestive of sacroiliac pain (without historic features of systemic inflammatory disease such as IBD). Pain may be 2/2 reported lower extremity length discrepancy (left leg is shorterthan right). Obesity with poor diet choices (skips breakfast or lunch, snacks frequently on high carb options). - labs: lipids, fasting glucose - received TDaP today - will ask that he have his chiropractor release the Xrays he had performed; if evidence of S-I inflammation, will refer for steroid injection. If not, I may send him for steroid injection as a diagnostic and a therapeutic measure - suggested the following diet changes: reintroduce breakfast to minimize late evening snacking; make lunch the 'biggest' meal of the day; portion control: make vegetable 1/2 of your plate, with 1/4 being carb, 1/4 being protein - advocated for three 60-90 minute sessions of moderate-strenuous activity per week for weight loss documented in this encounter Miscellaneous Notes Addendum Note - Jhonathan Holder - 08/21/2013 9:17 AM EDT Addended by: JHONATHAN HOLDER on: 08/21/2013 09:17 AM Modules accepted: Orders documented in this encounter Plan of Treatment Not on filedocumented as of this encounter Procedures Procedure Name Priority Date/Time Associated Diagnosis Comme nts GLUCOSE, FASTING Routine 08/21/2013 9:20 AM Annual physi adryan exam Results for this EDT Obesity procedure are i n the results section. LIPID PANEL (REFLEX Routine 08/21/2013 9:20 AM Annual ph ysical exam Results for this DIRECT LDL) EDT Obesity procedure are i n the results section. documented in this encounter Results (ABNORMAL) Glucose, fasting (08/21/2013 9:20 AM EDT) athologist Signature Glucose 113 (H) 65 - 99 CERNER Fasting mg/dL [facility] Comment: ?Fasting* Glucose Interpretive C riteria Normal ?65-99 mg/dL Impaired Fasting glucose ?100-125 mg/dL Consistent with Diabetes Mellitus ? >or= 126 mg/dL *Fasting is defined as no caloric intake for at least 8 hours In the absence of unequivocal hypergly cemia a plasma glucose value of >or= 126 mg/dL should be repeated on a subseq uent day. Diagnosis and Classification of Diabetes Mellitus, Position Statement from the [place] Diabetes Association. ??Diabete s Care, Volume 33, Supplement 1, Feb 2009 Specimen Anatomical Collection Method Collection Time Receive d Time (Source) Location / / Volume Laterality Blood specimen 08/21/2013 9:20 AM 014 (specimen) EDT 12:28 PM EDT Resulting Agency Comment Spec In Lab [facility] MD CHEMISTRY ORDERABLES Performing Organization Address City/State/ZIP Code Phon e Number [facility] [place] [id number] [place]O [place] (ABNORMAL) Lipid panel (fasting) (08/21/2013 9:20 AM EDT) P athologist Signature Chol, Total 190 <=199 mg/dL CERNER MILLENNIUM Comment: Recommendations of the NCEP Adult Treatm ent Panel for the following risk cutoff thresholds for the [place] populatio n: Desirable: <200 mg/dL Borderline High: 200-239 mg/dL High: > or = 240 mg/dL Triglycerides 89 <=149 mg/dL CERLILY MILLENN M Comment: Reference Range: Normal triglycerides: ??<150 mg/dL Borderline high: ??150-199 mg/dL High: ??200-499 mg/dL Very high: ??>ug=720 mg/dL HEATH 2001; 285(19):5496-1255 HDL 53 >=40 mg/dL CERLILY DELGADILLOENNIUM Comment: Reference range: ??Low HDL: ?? < 40 mg/dL ??Normal: ?40-60 mg/dL ??Desirable: > 60 mg/dL HEATH 2001; 285(19):3126-5625 LDL Cholesterol 119 (H) <=99 mg/dL CHACHO MARTINEZ Comment: Reference range: ?? Optimal: ?<100 mg/dL ?? Near Optimal/Above Optimal: ?? 100-1 29 mg/dL ?? Borderline high: ?130-159 mg/dL ?? High: ? 160-189 mg/dL ?? Very high: ?>jz=858 mg/dL HEATH 2001: 285(19):5779-7472 Chol/HDL Ratio 3.6 ratio CERNER MILLENNI Comment: A Cholesterol to HDL ratio below 4:1 is desirable. ??Studies suggest that increased CAD risk occurs at ratios abov e 5 for females and above 6 for men. ? [place] Heart Association ??(htt p://www.americanheart.org) ? Leana Int Med, 1994; 121:641 ? AM J Med, 1998; 105(1A):48S Specimen Anatomical Collection Method Collection Time Receive d Time (Source) Location / / Volume Laterality Blood specimen 08/21/2013 9:20 AM 014 (specimen) EDT 12:28 PM EDT Resulting Agency Comment Spec In Lab [facility] MD CHEMISTRY ORDERABLES Performing Organization Address City/State/[place] [address] CHACHO [place] documented in this encounter Visit Diagnoses Diagnosis Annual physical exam - Primary Routine general medical examination at a health care facility Obesity Obesity, unspecified Chronic right SI joint pain Disorders of sacrum Need for iixbaymcvk-tgkfwuo-nvpxeuedm (T dap) vaccine Need for prophylactic vaccination with c ombined ycmqeqturw-fkriloh-zpogkcxbi (DTP) vaccine documented in this encounter Care Teams Cupola Operator Insulation Relationship Specialty Start Date End Date Enrike Melgoza MD PCP - General 03/05/12 12/23/[address] [place] [id number] documented as of this encounter
--- OUTSIDE RECORDS SUMMARY | 2021-12-31 12:15 | XMS_ITS | Encounter Summary ---
:1975 Author Organization [facility] [address] Care Team Providers Name Role Phone Enrike Melgoza MD Primary Care Provider Encounter Details Date Type Department Care Team Description 07/31/2013 Follow-Up Physical Therapy at [facility] [address] PHYSICAL MEDICINE & [place] [address] Low back pain (Primary [address] Enrike Melgoza MD [address] [place] [phone] Dx) [address] [place] [phone] Social History Tobacco Use Types Packs/Day Years Used Date Never Smoker Smokeless Tobacco: Never Used Alcohol Use Standard Drinks/Week Comments Yes 5 (1 standard drink = 0.6 oz pure alcoho l) Sex Assigned at Date Recorded Not on file documented as of this encounter Progress Notes Alina Valero PTA - 07/31/2013 3:51 PM EDT Images from the original note were not included. Physical Therapy Progress Note Total treatment time: 50 minutes Total timed code treatment: 30 minutes Date of Exam/First Treatment: 07/04/2013 Date of onset: 2012 Referring Provider: Lonnie KOENIG Authorizing Provider: Enrike Melgoza MD Follow up visit for patient with: 1. Low back pain S: Pt reports decreased sx for a full day following last PT session. Patient reports his back has had good days and bad days. Core getting stronger, feeling some improvement with golf swing (greater distance) O: Therex 20 min, Manual 15 min, E-stim 15 min ?? core stab training: hooklying LE marching; with LE on therapy ball and UE with wt ball, trunk rotation; quadruped LE lifts, UE lifts, bird dog all with cuing for core stab ?? reviewed stretches ?? Hamstring ?? Piriformis ?? Manual Therapy 15 min ?? STM to lumbar paraspinals ?? briefly worked into hip flexors as with hip flexion to 90 he is feeling sx at hip flexor tendon (reduced after STM) ?? Quadruped Bird Dog ([place] UE/LE ext) 5x15 E-Stim - 4 leads to lumbar paraspinals, 80-150 IFC with cold pack 15 min (see image for electrode placement) A: Reduced sx with treatment. P: Cont physical therapy for strengthening, improved flexibility, improved functional mobility. Previous Clinic Exercises/Activities: Current goals: GOALS: Therapy Short Term Goals (3 weeks) Patient will: 1. Be indep with home exercise program. 2. report ability to sit for 1 hour without increased difficulty in his lower back as reported on the Mod. Oswestry. 3. report ability to stand for 1 hour without increased difficulty in his lower back as reported on the Mod. Oswestry. Therapy [facility] Goals (6 weeks) Patient will: 1. Demonstrate [...] Lumbago documented in this encounter Care Teams Adult Protective Caseworker Relationship Specialty Start Date End Date Enrike Melgoza MD PCP - General 03/05/12 12/23/[address] [place] [address] documented as of this encounter
--- OUTSIDE RECORDS SUMMARY | 2021-12-31 12:15 | XMS_ITS | Encounter Summary ---
:1975 Author Organization [facility] [place] [address] Care Team Providers Name Role Phone Enrike Mlegoza MD Primary Care Provider Encounter Details Date Type Department Care Team Description 01/14/2014 Telephone Pain Management at Lauren Arzola, [place] [address] Social History Tobacco Use Types Packs/Day Years [...] Telephone Encounter - Lauren Gonzalez, [place] - 01/14/2014 8:30 AM EST Amaury Armendariz :1975 Contact made with patient: I spoke to Mr. Armendariz at 8:31 AM regarding his upcoming Right lumbar radiofrequency scheduled on 01/15/14 (date) scheduled at 1100 (time) with Dr. Ben Lemons DO. Medication and Allergy reconciliation: 1. Changes were made in the telephone encounter per patient; marked as reviewed, and closed. 2. Patient confirmed no IVP dye allergy. 3. Have you had any steroid injections anywhere in your body within the last two weeks? no Arrival time: The patient was instructed to arrive at 1030 (30 minutes prior to procedure start time - 60 minutes prior for RF patients with a pacemaker) on 01/15 (date of procedure). Prepress Stripper: The patient was reminded that they need to have a auto parts delivery driver accompany them to her procedure who will remain onsite. Antibiotics/Skin assessment/Illness [...] any diagnosed bleeding disorders: No Anticoagulants: No NPO instructions given to patient: 1. Last solid food intake until 0500 (6 hours prior to procedure). 2. Clear liquids (khloe shana, tea, black coffee, water, grape juice, apple juice, or cranberry juice) only intake until 0900 (2 hours prior to procedure). Diabetic instructions: Patient was advised to inform their PCP regarding safe fasting and the NPO requirements for their upcoming procedure and given the [facility] Nurse Triage Line . Implant: Patient has pacemaker/defibrillator: No Prior to checking in at [employer], please be sure to empty your bladder. Patient confirmed understanding that if they do not follow the above their instructions, their procedure is likely to be cancelled. Lauren Gonzalez LPN documented in this encounter Plan of Treatment Not on filedocumented as of this encounter Visit Diagnoses Not on filedocumented in this encounter Care Teams Hop Separator Relationship Specialty Start Date End Date Enrike Melgoza MD PCP - General 12/26/13 01/26/[address] [place] [id number] documented as of this encounter
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
--- OUTSIDE RECORDS SUMMARY | 2021-12-31 12:15 | XMS_ITS | Encounter Summary ---
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 [facility] [place] [id number] [place] [address] Referral ID Status Reason Start Date Expiration Date Visits V isits Requested Authorized [id number] Closed Consult, 12/11/2013 06/09/2014 1 1 Test & Treat Reason for Visit Reason Comments Other follow up Encounter Details Date Type Department Care Team Description 12/11/2013 Office Visit [facility] Low alicia k pain-right Juancho Garza APRN sided (Primary Dx[facility] [place] [facility] [id number] [place] [address] [phone] Social History Tobacco Use Types Packs/Day Years [...] Sign Reading Time Taken Comments Blood Pressure 115/72 12/11/2013 4:53 PM EDT Pulse - - Temperature - - Respiratory Rate - - Oxygen Saturation - - Inhaled Oxygen Concentration - - Weight 95.3 kg (210 lb) 12/11/2013 4:53 PM EDT Height 177 cm (5' 9.7) 12/11/2013 4:53 PM EDT Body Mass Index 30.39 12/11/2013 4:53 PM EDT documented in this encounter Progress Notes Qiana Moran, YOAV - 12/12/2013 12:14 PM EDT INTERVAL HISTORY: Amaury Armendariz is a 38 y.o. male seen in the Sp[facility] Center today for follow-up office visit of his right sided low back pain, which has been present for a number of years but became more bothersome to him since Fall 2012. He denies groin pain, and reports his right low back pain only occasionally will extend into his right buttock or hip. He denies any radicular symptoms in his lower extremities. He notes some overall improvement in his pain levels with Yuan PT here at the [facility] and PT at [facility] over the summer. He was able to play golf this summer without increased back pain, which was an improvement from his last visit here. However, he skated for the first time pr eparing to play ice hockey this winter this past week and noticed this aggravated his back pain. He still has increased back pain with certain strenuous physical activities. He has also tried Flexeril,which caused him drowsiness, yoga, which improved his range of motion, and acupuncture, which provided him some temporary relief, since his last visit here. Although he has had some improvement in his pain levels with PT, he is interested in a trial of injection therapy at this point. REVIEW OF SYSTEMS: negative for any GI (except GERD) or symptoms, constitutional symptoms, saddleanesthesia or loss of bowel or bladder control. He denies myelopathic symptoms such as gait disturbance, gait imbalance, or difficulty with fine motor control. MEDICATIONS & ALLERGIES: reviewed with the patient and are in eD-H. PHYSICAL EXAMINATION: This was a counseling based visit and I did not repeat a physical exam today, as the patient's symptoms remain unchanged in location since his last visit here and I would expect and exam today to be largely the same as it was at his last visit here. IMAGING: No recent spinal imaging. ASSESSMENT: Mechanical low back pain, right sided. PLAN: Non-surgical treatment options including PT, NSAIDs, Functional Yarsani Program, and injections (reviewed potential risks and benefits of lumbar medial branch block/radiofrequency ablation (MBB/RFA), were reviewed with the patient. 1) Referral to the Pain Clinic for a Right Lumbar MBB/RFA if indicated. Patient was advised he will need a motor driver to/from his injection. 2) Will obtain lumbar AP & lateral x-ray today. 3) We discussed that his back pain is likely going to be a chronic issue for him and I've encouragedhim to remain as active as possible in order to maintain his core strength. We reviewed that although activity may be painful it is not likely to be harmful. Follow-Up: After RFA if indicated, after MBB if RFA not indicated. All questions were answered and the patient is in agreement with the above treatment plan. This was a counseling dominated visit with approximately 15 minutes of this 20 minute encounter spent in face to face counseling, medical decision making, and review of treatment options. Thank you for the opportunity to participate in the care of this patient. Qiana Moran MS, SHEET PILE DRIVER OPERATOR, LIVESTOCK EXHIBITOR-C [facility] documented in this encounter Plan of Treatment Scheduled Referrals Name Type Priority Associated Diagnoses Order S chedule Referral to Pain Outpatient Referral Routine Low back pain-rig ht Ordered: Clinic sided 12/11/2013 documented as of this encounter Procedures Procedure Name Priority Date/Time Associated Diagnosis Comme nts XR LUMBAR SPINE 2 Routine 12/11/2013 5:44 PM Low back pain-rig ht Results for this OR 3 VIEWS EDT sided procedure are i n the results section. documented in this encounter Results XR lumbar spine 2 or 3 views (12/11/2013 5:44 PM EDT) Anatomical Region Laterality Modality L-spine N/A Radiographic Imaging Specimen (Source) Anatomical Collection Method Collection Time Re ceived Time Location / / Volume Laterality 12/11/2013 5:44 PM EDT Narrative 12/11/2013 5:48 PM EDT Examination LSPINE 2 OR 3 VIEWS Clinical History right sided low back pain; AP & late ral Comparison None. Technique AP and lateral views of the lumbar sacra l spine. Findings No significant degenerative disc disease or compression fracture is present. ?? No spondylolisthesis. ??There is a mild levoconvex scoliosis of the lumbar spine. ??The sacroiliac joints appear no rmal. ??Facet joints appear unremarkable. Impression Mild levoconvex scoliosis of the lumbar spine, otherwise normal lumbar sacral spine films. Procedure Note Alex Tariq MD - 12/11/2013Formatt ing of this note might be different from the original. Examination LSPINE 2 OR 3 VIEWS Clinical History right sided low back pain; AP & late ral Comparison None. Technique AP and lateral views of the lumbar sacra l spine. Findings No significant degenerative disc disease or compression fracture is present. No spondylolisthesis. There is a mild le voconvex scoliosis of the lumbar spine. The sacroiliac joints appear norm al. Facet joints appear unremarkable. Impression Mild levoconvex scoliosis of the lumbar spine, otherwise normal lumbar sacral spine films. Brenton Ladd MD IMG DX ORDERABLES documented in this encounter Visit Diagnoses Diagnosis Low back pain-right sided - Primary Lumbago documented in this encounter Care Teams Auditor Tax Relationship Specialty Start Date End Date Enrike Melgoza MD PCP - General 03/05/12 12/23/[address] [place] [address] documented as of this encounter
[2021-12-31 12:28] VITALS: BP 135/92; PULSE 71; RESP 16; TEMP 36.4; O2SAT 96
[2021-12-31] MEDS: Lactated Ringers 1,000 ML 80 ML IV (12:45)
--- NOTE | 2021-12-31 12:48 | ANES.PREOP_ITS ---
General Info Date of Service Date Performed: 12/31/21 Height: 5 ft 10 in Weight: 100.3 kg Body Mass Index (BMI): 31.7 Surgical Procedure: Operation Date: 12/31/21 12:50 Proposed Procedure Side Surgeon darrick Rouse MD Meds Allergies and Home Medications Allergies Allergy/AdvReac Type Severity Reaction Status Date / Time No Known Allergies Allergy Unverified 12/27/21 10:55 Home Medication Medication Instructions Recorded multivitamin 1 ea PO DAILY 08/14/17 naproxen sodium 220 mg tablet 440 mg PO PRN PRN 08/14/17 (Aleve) omeprazole 20 mg capsule,delayed 20 mg PO DAILY 12/27/21 release sertraline 50 mg tablet 50 mg PO DAILY 12/27/21 vitamin B complex (B 1 tab PO DAILY 12/27/21 Complex-Vitamin B12 tablet) Current Visit Medications: Current Medications Generic Name Dose Route Start Last Admin Trade Name Freq PRN Reason Stop Dose Admin Hyoscyamine Sulfate 0.125 mg 12/30/21 20:54 Hyoscyamine 0.125 Mg Sl/Oral/Chew SL DIRECTED PRN Ringer's Solution 1,000 mls @ 80 mls/hr 12/31/21 06:00 IV 01/29/22 23:59 INFUSION [facility] IV Miscellaneous Supplies 1 each 12/31/21 06:00 Iv Access IV 01/29/22 23:59 DIRECTED LOKESH Ondansetron HCl 4 mg 12/30/21 20:54 Ondansetron 4 Mg/2 Ml Vial IVP Q4H PRN PRN Nausea / Vomiting Sodium Chloride 0 ml 12/31/21 06:00 Normal Saline Flush 10 Ml Syr IV 01/29/22 23:59 PRN PRN Sodium Chloride 0 ml 12/31/21 06:00 Normal Saline 10 Ml Vial IJ 01/29/22 23:59 DIRECTED PRN Sterile Water 0 ml 12/31/21 06:00 Water,Injection,Sterile 10 Ml Vial IJ 01/29/22 23:59 DIRECTED PRN PFSH Active Problems Active Problems: Problem Status Onset Code Right facial numbness 08/17/17 R20.0 GERD (gastroesophageal reflux disease) K21.9 Low back pain M54.5 Screening for colon cancer Z12.11 Medical History Medical History (Updated 12/31/21 @ 08:16 by Radha Renee) DEANDRA on CPAP Surgical History Surgical History Other dental procedure status Other specified rehabilitation procedure L-spine radiofrequency ablation Tobacco Smoking/Tobacco Use Status: Never Alcohol Alcohol Intake: current Alcohol intake frequency: a few times a month Substance Use Substance use: Never Substance use type: does not use Vital Signs and Lab Results Vital Signs Most Recent Vital Signs in EMR: Most Recent Vital Signs Temp Pulse Resp BP Pulse Ox 36.4 C L 71 16 135/92 H 96 12/31/21 12:28 12/31/21 12:28 12/31/21 12:28 12/31/21 12:28 12/31/21 12:28 Lab Results Blood Type / Crossmatch: No Data to Display Complete Blood Count: No Data to Display Complete Metabolic Panel: No Data to Display Liver Function Panel: No Data to Display Coagulation Panel: No Data to Display Cardiac Panel: No Data to Display Arterial Blood Gas: No Data to Display Venous Blood Gas: No Data to Display Pancreas Panel: No Data to Display Thyroid Panel: No Data to Display Infectious Disease: No Data to Display Blood Cultures: No Data to Display Toxicology Panel: No Data to Display Anesthesia Assessment and Plan Anesthesia History Personal History: No History of Anesthesia Complications Family History: No Family History of Anesthesia Complications Exercise Tolerance Exercise Tolerance: Metabolic Equivalents>4 Pertinent Negatives Pertinent Negatives: No Symptoms of GERD, No Major Cardiovascular Symptoms or Complaints and No Major Pulmonary Symptoms or Complaints Cardiac & Pulmonary Exam Cardiac Exam: Normal S1/S2 Heart Sounds Pulmonary Exam: Clear Bilateral Breath Sounds Implantable Cardiac Device Does patient have a Pacemaker or an ICD?: No Airway Exam Known Difficult Airway: No Mallampati Class: 2 Mouth Opening: Normal (> 3cm) Thyromental Distance: Greater than 3 cm Neck Range of Motion: Full ROM Neck Circumference: Normal Teeth Condition: Normal Dentition ASA Classification ASA Score: ASA 2 Emergency Case?: No NPO Status NPO Status: NPO Clears >2 hours, Solids >8 hours Anesthesia Plan Resuscitation Status: Full Code Anesthesia Technique: General Anesthesia Airway Planned: Natural Airway Monitors Used: Standard Monitors
[2021-12-31 12:50] VITALS: BMI 31.7
[2021-12-31 13:26] VITALS: BP 113/74; PULSE 63; RESP 18; TEMP 36.5; O2SAT 94
[2021-12-31 13:45] VITALS: BP 119/80; PULSE 57; RESP 18; TEMP 36.5; O2SAT 96
--- NOTE | 2022-01-03 12:02 | W.ANESPOSTOP ---
Postoperative Evaluation Date, Time and Location Date Performed: 12/31/21 Time Performed: 13:45 Patient Location: Day Surgery Unit Vital Signs Most Recent Imported Vital Signs: Most Recent Vital Signs Temp Pulse Resp BP Pulse Ox 36.5 C 57 L 18 119/80 96 12/31/21 13:45 12/31/21 13:45 12/31/21 13:45 12/31/21 13:45 12/31/21 13:45 Pain Score Most Recent Pain Score: Most Recent Pain Score Pain Level 0 12/31/21 12:28 Assessment Mental Status: Awake (Alert & Oriented to Patient Baseline) Airway and Respiratory Function: Patent airway with normal (patient baseline) respiratory exam Cardiovascular Function: Hemodynamically Stable Hydration Status: Adequately Hydrated Nausea & Vomiting: No Nausea or Vomiting Pain: Pt. Denies Any Pain Peripheral Nerve Block: Patient did not receive a nerve block
== END 2021-12-31 13:55 | disposition home or self-care (01) ==
PROVIDERS: PCP Nurse Practitioner Family; Visit Provider Surgery
PROC: 0DJD8ZZ Inspection of Lower Intestinal Tract, Via Natural or Artificial Opening Endoscopic (ICD-10-PCS; CPT 45378; principal; 2021-12-31 12:45)
DX: Z12.11 Encounter for screening for malignant neoplasm of colon (principal)
CPT/HCPCS: 45378

== ENCOUNTER 2022-06-03 00:56 | Outpatient (CLI) | payer BC, SELFPAY ==
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
== END 2022-06-03 01:16 ==
LOC: DI 00:57
PROVIDERS: PCP Nurse Practitioner Family; Visit Provider Nurse Practitioner Family
DX: M25.512 Pain in left shoulder (principal)
CPT/HCPCS: 73030

== ENCOUNTER 2022-09-05 01:45 | Outpatient (CLI) | payer BC, SELFPAY ==
--- NOTE | 2022-09-05 10:20 | DI.MRI_ITS ---
Exam(s) MR UPPER JOINT LT WO EXAM: MR UPPER JOINT LT WO CLINICAL HISTORY: L SHOULDER PAIN,m25.512 TECHNIQUE: Multiplanar multisequence MRI of the shoulder was performed. COMPARISON: CR XR SHOULDER LT COMPLETE 2+V from 06/03/2022 FINDINGS: MARROW:There is no evidence of fracture, Hill-Sachs deformity, nor osseous Bankart lesion. There is a benign-appearing bone lesion in the medial half of the humeral head which measures 1.2 by 0.6 by 0.6 cm and has appearance of a probable enchondroma. No surrounding bone edema. Benign bone island is noted in the posterior aspect of the osseous glenoid, this measuring 0.6 x 0.6 cm. ROTATOR CUFF MECHANISM: AC JOINT/ACROMIUM: There are significant degenerative changes in the AC joint including mom degenerat kayla subarticular cysts in the clavicle at this level as well as bone edema in the lateral 3rd of the clavicle. Lesser amount of similar findings also seen in the acromial side of the joint. There are no prominent downgoing osteophytes.. There is no evidence of os acromiale. Supraspinatus: Minimal tendinitis signal. No evidence of tear. No fluid in the subacromial bursa sp summer. No muscle atrophy. Infraspinatus: Intact. No evidence of tear nor muscle atrophy. Teres Minor: Intact. No evidence of tear nor muscle atrophy. Subscapularis/anterior cuff: Intact. No abnormal signal at the level of the multipennate insertional fibers. No significant tear nor atrophy. BICEPS TENDON: Not displaced from normal position within the intertubercular groove. Small amount of fluid in the tendon sheath. No loose bodies in the tendon sheath. LABRUM: No labral tear identified. No evidence of paralabral cyst. GLENOHUMERAL JOINT: No joint effusion nor obvious loose intra-articular bodies. No chondral defects. No osteophytes. No degenerative subarticular cysts. Inferior glenohumeral ligament is intact. QUADRILATERAL SPACE: No evidence of mass in the region of the axillary nerve and dorsal circumflex hu meral vessels. Visualized triceps muscle at this level appears unremarkable. IMPRESSION: 1. There are significant degenerative changes in the AC joint with degenerative subarticular cysts an d intraosseous edema both sides of the joint. There are no prominent downgoing osteophytes at this l evel. 2. Minimal signal in the supraspinatus. No evidence of significant tear of the rotator cuff tendons. No evidence of muscle atrophy. 3. No evidence of biceps tendon nor labral tears. 4. No significant degenerative changes in the glenohumeral joint. No glenohumeral joint effusion no r loose intra-articular bodies. 5. Incidentally noted is a benign-appearing nonexpansile 12 x 6 x 6 mm bone lesion in the medial jack f of the humeral head which has appearance of a benign enchondroma. DATA REPOSITORY:
== END 2022-09-05 02:05 ==
LOC: DI 01:45
PROVIDERS: PCP Nurse Practitioner Family; Visit Provider Student in an Organized Health Care Education/Training Program
DX: M19.012 Primary osteoarthritis, left shoulder; M89.8X2 Other specified disorders of bone, upper arm
CPT/HCPCS: 73221

== ENCOUNTER 2022-09-29 10:35 | Day surgery (SDC) | payer BC, SELFPAY ==
[2022-09-29] VITALS (9 sets, daily range): BP systolic 113–134; BP diastolic 64–88; PULSE 59–80; RESP 10–17; TEMP 36.3–36.7; O2SAT 94–100; BMI 31.8
--- NOTE | 2022-09-29 11:22 | W.ANESPRE ---
General Info Date of Service Date Performed: 09/29/22 Height: 5 ft 10 in Weight: 100.7 kg Body Mass Index (BMI): 31.8 Surgical Procedure: Operation Date: 09/29/22 13:10 Proposed Procedure Side Surgeon p Shoulder Arthroscopy w/Distal Clavicle Excision and possible Biceps Tenodesis Left Иван Hamilton MD Meds Allergies and Home Medications Allergies Allergy/AdvReac Type Severity Reaction Status Date / Time No Known Allergies Allergy Unverified 09/29/22 10:54 Home Medication Medication Instructions Recorded multivitamin 1 ea PO DAILY 08/14/17 naproxen sodium 220 mg tablet 440 mg PO PRN PRN 08/14/17 (Aleve) omeprazole 20 mg capsule,delayed 20 mg PO DAILY 12/27/21 release sertraline 50 mg tablet 50 mg PO DAILY 12/27/21 vitamin B complex (B 1 tab PO DAILY 12/27/21 Complex-Vitamin B12 tablet) Current Visit Medications: Current Medications Generic Name Dose Route Start Last Admin Trade Name Freq PRN Reason Stop Dose Admin Ringer's Solution 1,000 mls @ 30 mls/hr 09/29/22 06:00 IV 09/29/22 16:00 INFUSION LOKESH Cefazolin Sodium/Dextrose 2 gm in 50 mls @ 100 mls/hr 09/29/22 06:00 Ancef Duplex IVPB 09/29/22 23:59 [facility] IV Miscellaneous Supplies 1 each 09/29/22 06:00 Iv Access IV 09/29/22 23:59 DIRECTED LOKESH Oxycodone HCl 0 mg 09/29/22 07:26 Oxycodone 5 Mg Tab PO 10/29/22 07:25 Q3H PRN PRN Pain Sodium Chloride 0 ml 09/29/22 06:00 Normal Saline Flush 10 Ml Syr IV 09/29/22 23:59 PRN PRN Sodium Chloride 0 ml 09/29/22 06:00 Normal Saline 10 Ml Vial IJ 09/29/22 23:59 DIRECTED PRN Sterile Water 0 ml 09/29/22 06:00 Water,Injection,Sterile 10 Ml Vial IJ 09/29/22 23:59 DIRECTED PRN PFSH Active Problems Active Problems: Problem Status Onset Code Right facial numbness 08/17/17 R20.0 GERD (gastroesophageal reflux disease) K21.9 Low back pain M54.5 Screening for colon cancer Z12.11 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 Pain in left acromioclavicular joint M25.512 Tendinitis of long head of biceps brachii of left shoulder M75.22 Medical History Medical History Anxiety Depression DEANDRA on CPAP Medical History Comments:: CPAP compliant Surgical History Surgical History (Updated 09/29/22 @ 10:51 by Radha Renee) Hx of colonoscopy Hx of wisdom tooth extraction Other dental procedure status Other specified rehabilitation procedure L-spine radiofrequency ablation Tobacco Smoking/Tobacco Use Status: Never Alcohol Alcohol Intake: current Alcohol intake frequency: a few times a month Substance Use Substance use: Never Substance use type: does not use Vital Signs and Lab Results Vital Signs Most Recent Vital Signs in EMR: Most Recent Vital Signs Temp Pulse Resp BP Pulse Ox 36.7 C 63 15 129/76 95 09/29/22 11:08 09/29/22 11:08 09/29/22 11:08 09/29/22 11:08 09/29/22 11:08 Lab Results Blood Type / Crossmatch: No Data to Display Complete Blood Count: No Data to Display Complete Metabolic Panel: No Data to Display Liver Function Panel: No Data to Display Coagulation Panel: No Data to Display Cardiac Panel: No Data to Display Arterial Blood Gas: No Data to Display Venous Blood Gas: No Data to Display Pancreas Panel: No Data to Display Thyroid Panel: No Data to Display Infectious Disease: No Data to Display Blood Cultures: No Data to Display Toxicology Panel: No Data to Display Anesthesia Assessment and Plan Anesthesia History Personal History: No History of Anesthesia Complications Family History: No Family History of Anesthesia Complications Exercise Tolerance Exercise Tolerance: Metabolic Equivalents>4 Pertinent Negatives Pertinent Negatives: No Symptoms of GERD, No Major Cardiovascular Symptoms or Complaints and No Major Pulmonary Symptoms or Complaints Cardiac & Pulmonary Exam Cardiac Exam: Normal S1/S2 Heart Sounds Pulmonary Exam: Clear Bilateral Breath Sounds Implantable Cardiac Device Does patient have a Pacemaker or an ICD?: No Airway Exam Known Difficult Airway: No Mallampati Class: 2 Mouth Opening: Normal (> 3cm) Thyromental Distance: Less than 3 cm Neck Range of Motion: Full ROM Neck Circumference: Normal Teeth Condition: Normal Dentition ASA Classification ASA Score: ASA 2 Emergency Case?: No NPO Status NPO Status: NPO Clears >2 hours, Solids >8 hours Anesthesia Plan Resuscitation Status: Full Code Anesthesia Technique: General Anesthesia Airway Planned: Endotracheal Tube Pain Management: Surgeon and patient request nerve block Monitors Used: Standard Monitors
[2022-09-29] MEDS: Lactated Ringers 1,000 ML 30 ML IV (11:40)
--- NOTE | 2022-09-29 12:11 | ROE_ITS ---
Date of service: 09/29/22 Time of Service: 12:27 Operative Note Operative Note DATE OF PROCEDURE: 09/29/22 PRE-OP DIAGNOSIS: Left shoulder: 1. Distal clavicle osteolysis 2. LHB tendinopathy POST-OP DIAGNOSIS: same Left shoulder: 1. Distal clavicle osteolysis 2. LHB tendinopathy 3. Labral fraying PROCEDURE: Left: 1. Arthroscopic distal clavicle excision, CPT# 16016. This involved arthroscopically exposing the underside of the acromioclavicular joint, smoothing adjacent acromion, and removing approximately 5 mm of the distal clavicle so there was no abnormal or engaging bone left. 2. Limited debridement, CPT# 57493. This involved shaver and radiofrequency ablator debridement of anterior, superior, and posterior labral fraying. SURGEON: Иван Hamilton HAND INSERTER OPERATOR: Norma Armas ANESTHESIA TYPE: General LMA/ETT and Primary Nerve Block Refer to Anesthesia Record ESTIMATED BLOOD LOSS: 10 PATHOLOGY: none sent COMPLICATIONS: None Patient was transported to: PACU Patient's condition: stable Implants: None Indications: The patient was diagnosed with the above conditions and appropriately indicated for surgical intervention. Please see complete medical record for details. Findings: Exam under anesthesia: Full range of motion, no instability Glenohumeral joint: Mild anterior, superior, and posterior labral fraying. The superior labral fraying did not involve the biceps anchor or any instability of the superior labrum at the supraglenoid.anterior, superior, and posterior labral fraying. Mild biceps tendon injection at the superior aspect of the bicipital groove with otherwise intact and healthy intra-articular segment. Intact subscapularis. Intact articular rotator cuff. Intact articular cartilage. Subacromial space: Mild bursitis. Marked inflammatory, degenerative, and cystic changes of the distal most aspect of the clavicle. Intact bursal rotator cuff. Procedure Description: In the operating room, general anesthesia was induced. Bilateral shoulders were examined. The patient was positioned in the beachchair position. All bony prominences were well-padded. Preoperative antibiotics were administered. The shoulder was prepped and draped in the usual sterile fashion. The correct patient, procedure, and side of the procedure were all verified prior to incision. Starting through the posterior portal a standard complete diagnostic arthroscopy was performed of the glenohumeral joint including inspection of the long head of the biceps, anterior and superior labrum, subscapularis tendon, supraspinatus and infraspinatus tendons, and axillary recess. The glenoid and humeral head cartilage as well as the posterior labrum were inspected from an anterior viewing portal. Significant findings and interventions noted above and a limited debridement done alternate viewing and working through the anterior posterior portals to complete debridement of the anterior, superior, and posterior mild labral fraying using a shaver followed by the radiofrequency wand to establish normal contour. A lateral 50 yard line portal was created. Mild bursitis was resected for visualization of the rotator cuff and more medially at the AC joint. The anterior portal was redirected towards the undersurface of the AC joint. A shaver and electrocautery device were used to clear soft tissue from the un dersurface of the AC joint. The distalmost 5 mm of the distal clavicle was then removed and smoothed. Care was taken to alternate between working through the anterior portal and viewing through the anterior portal to ensure that proper amount of bone was removed and there was no engaging bone left behind especially superiorly. The shoulder was drained of arthroscopic fluid. All portal sites were copiously irrigated. These incisions were closed using 3-0 Monocryl in a buried fashion and then covered with Mastisol, Steri-Strips, Xeroform, dry gauze, and ABDs. The dressings were covered and secured with Medipore tape. The operative extremity was placed into a sling for immobilization. The patient awoke from anesthesia without complication and was transferred to the recovery room in a s table condition.
--- NOTE | 2022-09-29 12:11 | W.PM.DSUDISC ---
Date of service: 09/29/22 Time of Service: 14:00 Discharge Plan Disposition Patient Disposition: Home Condition: Stable Discharge Details Attending Provider: Иван Hamilton Primary Care Provider: LUCIANO ISAACS Home Meds and New Rx's Prescriptions: New naproxen 250 mg tablet 250 - 500 mg PO BID PRNQty: 40 0RF Rx Instructions: take with a meal aspirin 81 mg tablet,delayed release (DR/EC) 81 mg PO DAILY 7 Days Qty: 7 0RF oxycodone 5 mg tablet 5 - 10 mg PO Q4H MDD 30 mg PRN (Reason: moderate to severe pain) Qty: 18 0RF Continued sertraline 50 mg tablet 50 mg PO DAILY omeprazole 20 mg capsule,delayed release(DR/EC) 20 mg PO DAILY vitamin B complex [B Complex-Vitamin B12] Tablet 1 tab PO DAILY multivitamin 1 EACH capsule 1 ea PO DAILY Discontinued naproxen sodium [Aleve] 220 MG tablet 440 mg PO PRN PRN Discharge Instructions Additional Instructions: Surgery: Left shoulder arthroscopy with distal clavicle excision and labral debridement Activity: You should gradually increase range of motion motion and use of your shoulder. You may use your shoulder for all regular activities while protecting biceps repair. Avoid any weighted/ heavy overhead reaching or lifting for about 6 weeks. You may use the sling whenever you are out of the house for a couple weeks. At home it is best to remove the sling and rest the arm on a pillow at your side or support the operative side with your other hand. A physical therapy prescription will be sent electronically to start in about 2-3 weeks. Prescriptions: Aspirin 81 mg take 1 daily to prevent a blood clot for 7 days Naproxen 250 mg take 1-2 every 12 hours with a meal as needed for moderate pain Oxycodone 5 mg take 1-2 every 4-6 hours as needed for severe pain You may use [id number] Tylenol (acetaminophen) as needed for mild pain. These pain medications may be taken all at once or in different combinations as needed. Also, recommend Colace (docusate) as a stool softener as surgery and pain medicine cause constipation. You may try [id number] diphenhydramine (Benadryl) 25-50 mg nightly as a sleep aid Dressings: Remove shoulder bandage after 3 days. Leave the sticky Steri-Strips in place until they fall off or remove them after you shower. Cover the incisions with Band-Aids or leave them open to air. You may shower after 5 days. Follow-up: 10-[address] Hamilton You may take off the leg compression stockings this evening at home. You may also leave them on a few days longer if you have a history of leg swelling or edema. Let us know right away if you develop any redness, drainage, fevers, chest pain, or trouble breathing. Do not drink alcohol or drive for at least 24 hours after anesthesia. Please call the office during business hours with any questions or concerns. Discharge Orders Discharge Orders: Discharge Order (Routine); Ordered 09/29/22 Ordered By: Иван Hamilton DS: Diagnosis Discharge Diagnosis (1) Pain in left acromioclavicular joint: Status: Acute
[2022-09-29] MEDS: ceFAZolin 2 GM/50 ML BAG IVPB (12:26)
--- NOTE | 2022-09-29 13:03 | W.ANESNERVE ---
Nerve Block Single Injection Procedure Date and Time Date Performed: 09/29/22 Procedure Start: 12:10 Location Where Procedure Performed Procedure Location: Day Surgery Unit Reason Performed: Postoperative Analgesia Requesting Provider: Иван Hamilton Timeout Performed Timeout Performed: Yes Monitoring Used ECG, Blood Pressure, SpO2 and See EMR for corresponding vital signs Sterility Sterility: Hand Hygiene, Surgical Cap, Surgical Mask, Sterile Gloves and Chlorhexidine Sedation Given During Procedure Sedation Given (Indicate Dose Given): Versed IV Dose:: 2mg Patient Mental Status Patient Mental Status: Sedate with meaningful communication Nerve Block 1st Nerve Block: Laterality: Left Block Type: Supraclavicular Ultrasound Image Saved?: Yes Needle / Catheter Used: 100mm SonoPlex II Local Anesthetic Bolus (Indicate Dose Given): Lidocaine used for local infiltration of skin, Injected in 3-5ml increments after negative blood aspiration, Bupivacaine 0.5% Dose:: 7.5ml and Exparel Dose:: 7.5ml Additives (Indicate Dose Given): None Ultrasound: Sterile probe cover and gel used Nerve Stimulator: Supplement to Ultrasound use and No twitch or parasthesia noted < 0.5 mA Paresthesia: None Procedure Tolerated: No Complications and Patient tolerated well Procedure Outcome: Successful Procedure Comment: Technically challenging to identify anatomy with just US, Best view was supra view. Used nerve stimulation set initially at 1mA with noted shoulder twitch, decreased twitch while advancing on the superior aspect of nerve bundle to 0.5mA with no twitch observed. 1/2 of local injected with good spread. Repositioned needle to lower aspect of nerve again with twitch at 1mA reduced to 0.5mA with no twitch and local given. Performed By: Hayden Moura 2nd Nerve Block: Laterality: Left Block Type: Superficial Cervical Plexus Ultrasound Image Saved?: Yes Needle / Catheter Used: 100mm SonoPlex II Local Anesthetic Bolus (Indicate Dose Given): Injected in 3-5ml increments after negative blood aspiration, Bupivacaine 0.5% Dose:: 2.5ml and Exparel Dose:: 2.5ml Additives (Indicate Dose Given): None Ultrasound: Sterile probe cover and gel used Nerve Stimulator: Not Used Paresthesia: None Procedure Tolerated: No Complications and Patient tolerated well Procedure Outcome: Successful Performed By: Hayden Moura
[2022-09-29] MEDS: EPINEPHrine 30 MG/30 ML VIAL (14:00)
--- NOTE | 2022-09-29 15:17 | W.ANESPOSTOP ---
Postoperative Evaluation Date, Time and Location Date Performed: 09/29/22 Time Performed: 15:17 Patient Location: Day Surgery Unit Vital Signs Most Recent Imported Vital Signs: Most Recent Vital Signs Temp Pulse Resp BP Pulse Ox 36.4 C L 65 16 122/80 95 09/29/22 14:50 09/29/22 14:50 09/29/22 14:50 09/29/22 14:50 09/29/22 14:50 Pain Score Most Recent Pain Score: Most Recent Pain Score Pain Level 2 09/29/22 14:50 Assessment Mental Status: Awake (Alert & Oriented to Patient Baseline) Airway and Respiratory Function: Patent airway with normal (patient baseline) respiratory exam Cardiovascular Function: Hemodynamically Stable Hydration Status: Adequately Hydrated Nausea & Vomiting: No Nausea or Vomiting Pain: Pain is tolerable per patient Peripheral Nerve Block: Regional nerve block not resolved at time of post operative discharge (Reports pain 2/10, tolerable at this time. ) Postoperative Comments:: Denies any questions. Patient appropriate for discharge.
== END 2022-09-29 16:25 | disposition home or self-care (01) ==
PROVIDERS: PCP Nurse Practitioner Family; Visit Provider Student in an Organized Health Care Education/Training Program
PROC: (CPT 29805; principal; 2022-09-29 13:00)
DX: M25.512 Pain in left shoulder (principal); M75.22 Bicipital tendinitis, left shoulder; M24.112 Other articular cartilage disorders, left shoulder; M89.512 Osteolysis, left shoulder
CPT/HCPCS: 29822; 29824; 76942; J0131; J0690; J1100; J1885; J2250; J2405; J2704

== ENCOUNTER 2022-12-22 16:02 | Outpatient (REF) | payer BC, SELFPAY ==
[2022-12-22 16:47] LABS: Anion Gap 11.2 mmol/L (3-11); BUN 22 mg/dL (7-18); CO2 25.8 mmol/L (21.0-32.0); CREATININE 1.1 mg/dL (0.70-1.30); Calcium 9.9 mg/dL (8.5-10.1); Calculated LDL 129 mg/dL (<100); Chloride 105 mmol/L (98-107); Cholesterol 206 mg/dL (<200); Estimated GFR 82.81 (mL/min/1.73m2); Glucose 123 mg/dL (74-106); HDL Cholesterol 46 mg/dL (40-60); Potassium 3.8 mmol/L (3.5-5.1); Sodium 142 mmol/L (136-145); Triglyceride 155 mg/dL (<150)
== END 2022-12-22 16:03 | disposition home or self-care (01) ==
LOC: NCHCN 16:02
PROVIDERS: PCP Nurse Practitioner Family; Visit Provider Nurse Practitioner Family
DX: F41.8 Other specified anxiety disorders (principal); F45.8 Other somatoform disorders; G47.33 Obstructive sleep apnea (adult) (pediatric); Z13.220 Encounter for screening for lipoid disorders; Z00.00 Encounter for general adult medical examination without abnormal findings
CPT/HCPCS: 80048; 80061

== ENCOUNTER 2023-01-11 10:06 | Outpatient (CLI) | payer BC, SELFPAY ==
--- NOTE | 2023-01-11 08:15 | DI.RAD_ITS ---
Exam(s) XR SHOULDER LT COMPLETE 2+V EXAM: XR SHOULDER LT COMPLETE 2+V CLINICAL HISTORY: AC joint discomfort. TECHNIQUE: 2D digital imaging was performed. COMPARISON: CR XR SHOULDER LT COMPLETE 2+V from 06/03/2022 MR MR UPPER JOINT LT WO from 09/05/2022 FINDINGS: Two views. No evidence of fracture or dislocation or abnormal soft tissue calcifications. No degenerative paulson es in the glenohumeral joint. Benign bone island again noted in the mid level of the osseous glenoid . Absence of visualization of a significant bone lesion in the humeral head is further evidence that the finding seen in the medial half of the humeral head on the recent MRI study of August 2022 is prob ably a nonaggressive enchondroma. This is often the case where they are seen on MRI but not plain fi lms. Some widening of the AC joint is again noted and there is a subarticular cyst again noted on the clav icular side of the joint. There appears to be overlying cortex dehiscence on the clavicular side of the AC joint. I note that there was abundant intraosseous edema on both sides of this joint on the p rior August 2022 MRI study. Acromion appears remarkable. IMPRESSION: 1. Stable benign findings in the humeral head and osseous glenoid as described above. 2. AC joint findings which appear to have radiographically progressed when compared to 06/03/2022 jose raul ges. Possibly related to inflammatory arthritic etiology. If clinically indicated follow-up MRI can be performed. DATA REPOSITORY: RADIATION DOSE DELIVERED:
== END 2023-01-11 10:07 | disposition home or self-care (01) ==
LOC: DIORS 10:07
PROVIDERS: PCP Nurse Practitioner Family; Visit Provider Physician Assistant
DX: M25.512 Pain in left shoulder (principal)
CPT/HCPCS: 73030

== ENCOUNTER 2024-03-06 16:24 | Outpatient (REF) | payer BC, SELFPAY ==
[2024-03-06 18:57] LABS: ESR 3 mm/hr (0-15)
[2024-03-06 19:08] LABS: ALT 72 U/L (16-63); AST 31 U/L (15-37); Albumin 4.2 g/dL (3.4-5.0); Alkaline Phosphatase 90 U/L (46-116); Anion Gap 6.9 mmol/L (3-11); BUN 16 mg/dL (7-18); Bilirubin, Total 0.72 mg/dL (0.2-1.0); CO2 30.1 mmol/L (21.0-32.0); Calcium 9.5 mg/dL (8.5-10.1); Chloride 105 mmol/L (98-107); Estimated GFR 92.26 (mL/min/1.73m2); Glucose 88 mg/dL (74-106); Potassium 4.2 mmol/L (3.5-5.1); Sodium 142 mmol/L (136-145); Total Protein 7.5 g/dL (6.4-8.2)
[2024-03-06 19:09] LABS: C-Reactive Protein < 0.50 mg/dL (<or=0.5)
[2024-03-06 19:34] LABS: Calculated LDL 142 mg/dL (<100); Cholesterol 236 mg/dL (<200); HDL Cholesterol 49 mg/dL (40-60); Triglyceride 228 mg/dL (<150)
[2024-03-07 20:50] LABS: Hepatitis C Ab w Rflx HCV PCR Negative (Negative)
== END 2024-03-06 16:25 | disposition home or self-care (01) ==
LOC: NCHCN 16:24
PROVIDERS: PCP Nurse Practitioner Family; Visit Provider Nurse Practitioner Family
DX: M15.1 Heberden's nodes (with arthropathy) (principal); Z11.59 Encounter for screening for other viral diseases
CPT/HCPCS: 80053; 80061; 85652; 86803; 86140